=== PATIENT | male | born 1940 | race Caucasian/White ===

== ENCOUNTER 2017-06-01 19:09 | Inpatient (IN) | payer OTHER ==
[~2017-06-01 19:09] MED LIST: DEXTROSE 50% IN WATER 50 ML VIAL(D50) IV PUSH PRN; GLUCAGON 1 MG/ML VIAL OTHER PRN; METF500T PO; cholesteral med PO; hypertension med PO; methylPREDNISolone SOD SUCC 125 MG/2 ML VIAL IV PUSH ONE
[2017-06-01 20:00] VITALS: PULSE 82
[2017-06-01] MEDS ORDERED: METOPROLOL TARTRATE 25 MG TAB PO ONE (20:00)
[2017-06-01 20:04] VITALS: O2SAT 96
[2017-06-01] MEDS: RESP: ALBUTEROL 2.5 MG/IPRATROPIUM 0.5 MG NEB (PRN) NEB (20:04)
[2017-06-01] MEDS: ASPIRIN 325 MG TAB PO SCH (20:30)
[2017-06-01] MEDS: INSULIN NovoLIN REGULAR SUPPLEMENTAL SCALE SQ SCH (20:37)
[2017-06-01] MEDS: METFORMIN HOLD POST IV CONTRAST SCH (20:38)
[2017-06-01 22:13] VITALS: BP 137/77; PULSE 77; RESP 12; TEMP 98.3; O2SAT 94
[2017-06-02] VITALS (8 sets, daily range): BP systolic 132–163; BP diastolic 70–90; PULSE 65–85; RESP 14–20; TEMP 95.6–98.7; O2SAT 95–98
[2017-06-02 06:59] LABS: CALCIUM 8.8 MG/DL (8.5-10.1)
[2017-06-02 07:00] LABS: BICARBONATE 25.6 MEQ/L (21.0-32.0)
[2017-06-02 07:03] LABS: CREATININE 0.94 MG/DL (0.60-1.30)
[2017-06-02] MEDS: INSULIN NovoLIN REGULAR SUPPLEMENTAL SCALE SQ SCH ×4 (08:09→21:00)
[2017-06-02] MEDS: ASPIRIN 325 MG TAB PO SCH (08:09)
[2017-06-02] MEDS ORDERED: [UNRECOGNIZED DRUG - OTHER] PO SCH (09:30)
--- NOTE | 2017-06-02 09:33 | HHI.HP ---
HPI Service [facility] Primary Care Physician [facility] Admission Diagnosis Diagnoses: Chief Complaint: feeling weak Travel History International Travel<30 Days: No Contact w/Intl Traveler <30 Da: No Traveled to Known Affected Are: No History of Present Illness 77-year-old white male being admitted for pneumonia Patient was in his usual state of health until about 5 days ago when he experienced a bout of weakness when he had gotten up to go to the bathroom in the morning and fell backwards scraping his arms. This was transient as the next day he was fine until about 3 days later he felt very weak again and almost collapsed. He denies having any fevers chills nausea vomiting or diarrhea. He denies having any chest pain whatsoever or any shortness of breath at all. In the emergency room, he was noted to have a white count of 18. Chest x-ray was unremarkable, CT chest showed possible bibasilar faint infiltrates. Patient was given Levaquin and then sent over for admission. Review of Systems Except as stated in HPI: all other systems reviewed are Neg Past Family Social History Past Medical History DM, HYL, HTN Allergies: Coded Allergies: No Known Allergies (Unverified , 06/04/17) Family History none per patient Social History Patient reports that he stopped smoking in the 1960s. Physical Exam Vital Signs Vital Signs Date Time Temp Pulse Resp B/P (MAP) Pulse Ox O2 Delivery O2 Flow Rate FiO2 06/02/17 08:00 95.6 68 20 163/79 (107) 95 06/02/17 05:18 98.7 67 16 157/85 (109) 97 06/02/17 01:11 96.7 81 14 132/70 (90) 97 06/01/17 22:13 98.3 77 12 137/77 (97) 94 06/01/17 20:04 96 21 06/01/17 20:00 82 Physical Exam VS: afebrile GENERAL: Lying in bed, no acute distress, awake, alert SKIN: Warm and dry. EYES: No scleral icterus. No injection or drainage. ENT: No nasal bleeding or discharge. Mucous membranes pink and moist. CARDIOVASCULAR: Regular rate and rhythm. no murmurs RESPIRATORY: No accessory muscle use. bibasilar rhonchi and crackles GASTROINTESTINAL: Abdomen soft, non-tender, nondistended. Extremities: No clubbing, cyanosis, or edema. No obvious deformities. MUSCULOSKELETAL: grossly intact ROM with 5/5 strength in upper extremities prox ; 4/5 lower extremities proximally BL; adequate muscle bulk and tone for age and habitus NEUROLOGICAL: Awake and alert. No obvious cranial nerve deficits. No facial droop nor slurred speech noted. PSYCHIATRIC: Appropriate mood and affect; insight and judgment normal. Laboratory Laboratory Tests Test 06/01/17 20:00 06/02/17 06:22 Troponin I 0.10 Blood Urea Nitrogen 19 Creatinine 0.94 Random Glucose 219 Calcium Level 8.8 Sodium Level 132 Potassium Level 3.9 Chloride Level 96 Carbon Dioxide Level 25.6 Anion Gap 10 Estimat Glomerular Filtration Rate 77 Result Diagram: 06/02/17621 Imaging Independently reviewed a chest x-ray and see no acute infiltrates. I independently reviewed the CT scan and see very mild by basilar infiltrates. CTA is negative for pulmonary embolism. Caprini VTE Risk Assessment Caprini VTE Risk Assessment: Mod/High Risk (score >= 2) Caprini Risk Assessment Model Point Value = 1 Point Value = 2 Point Value = 3 Point Value = 5 Age 41-60 Minor surgery BMI > 25 kg/m2 Swollen legs Varicose veins or History of unexplained or recurrent spontaneous Oral contraceptives or hormone replacement Sepsis (< 1 month) Serious lung disease, including pneumonia (< 1 month) Abnormal pulmonary function Acute myocardial infarction Congestive heart failure (< 1 month) History of inflammatory bowel disease Medical patient at bed rest Age 61-74 Arthroscopic surgery Major open surgery (> 45 min) Laparoscopic surgery (> 45 min) Malignancy Confined to bed (> 72 hours) Immobilizing plaster cast Central venous access Age >= 75 History of VTE Family history of VTE Factor V Leiden Prothrombin [id number] Lupus anticoagulant Anticardiolipin antibodies Elevated serum homocysteine Heparin-induced thrombocytopenia Other congenital or acquired thrombophilia Stroke (< 1 month) Elective arthroplasty Hip, pelvis, or leg fracture Acute spinal cord injury (< 1 month) Prophylaxis Regimen Total Risk Factor Score Risk Level Prophylaxis Regimen 0-1 Low Early ambulation 2 Moderate Order ONE of the following: *Sequential Compression Device (SCD) *Heparin 5000 units SQ BID 3-4 Higher Order ONE of the following medications: *Heparin 5000 units SQ TID *Enoxaparin/Lovenox 40 mg SQ daily (WT < 150 kg, CrCl > 30 mL/min) *Enoxaparin/Lovenox 30 mg SQ daily (WT < 150 kg, CrCl > 10-29 mL/min) *Enoxaparin/Lovenox 30 mg SQ BID (WT < 150 kg, CrCl > 30 mL/min) AND/OR *Sequential Compression Device (SCD) 5 or more Highest Order ONE of the following medications: *Heparin 5000 units SQ TID (Preferred with Epidurals) *Enoxaparin/Lovenox 40 mg SQ daily (WT < 150 kg, CrCl > 30 mL/min) *Enoxaparin/Lovenox 30 mg SQ daily (WT < 150 kg, CrCl > 10-29 mL/min) *Enoxaparin/Lovenox 30 mg SQ BID (WT < 150 kg, CrCl > 30 mL/min) AND *Sequential Compression Device (SCD) Assessment and Plan Assessment and Plan Community-acquired pneumonia -Continue treatment with Levaquin; procalcitonin pending mild weakness - PT eval - will get orthostatic vital signs elevated troponin - likely from pulm infx; trend is plateauing. DM - LDSS Lovenox addendum: case d/w cardiology regarding possible LBBB w/ troponin; [place] [facility] [place]. Jayy Pichardo MD Jun 02, 2017 09:33
--- NOTE | 2017-06-02 09:42 | HHI.HP ---
[facility] Admission Diagnosis Diagnoses: Chief Complaint: feeling weak Travel History International Travel<30 Days: No Contact w/Intl Traveler <30 Da: No Traveled to Known Affected Are: No History of Present Illness 77-year-old white male being admitted for pneumonia. Patient was in his usual state of health until about 5 days ago when he experienced a bout of weakness when he had gotten up to go to the bathroom in the morning and fell backwards scraping his arms. This was transient as the next day he was fine until about 3 days later he felt very weak again and almost collapsed. He denies having any fevers chills nausea vomiting or diarrhea. He denies having any chest pain whatsoever or any shortness of breath at all. In the emergency room, he was noted to have a white count of 18. Chest x-ray was unremarkable, CTA chest showed possible bibasilar faint infiltrates. Patient was given Levaquin and then sent over for admission. Patient reports that he stopped smoking in the 1960s. Denies any significant family hx. Reports he takes some BP med and baby aspirin. Denies any CAD. Review of Systems Except as stated in HPI: all other systems reviewed are Neg Past Family Social History Allergies: Coded Allergies: No Known Allergies (Unverified , 06/01/17) Social History Patient reports that he stopped smoking in the . Physical Exam Vital Signs Vital Signs Date Time Temp Pulse Resp B/P (MAP) Pulse Ox O2 Delivery O2 Flow Rate FiO2 06/02/17 08:00 95.6 68 20 163/79 (107) 95 06/02/17 05:18 98.7 67 16 157/85 (109) 97 06/02/17 01:11 96.7 81 14 132/70 (90) 97 06/01/17 22:13 98.3 77 12 137/77 (97) 94 06/01/17 20:04 96 21 06/01/17 20:00 82 Physical Exam VS: afebrile GENERAL: Lying in bed, no acute distress, awake, alert SKIN: Warm and dry. EYES: No scleral icterus. No injection or drainage. ENT: No nasal bleeding or discharge. Mucous membranes pink and moist. CARDIOVASCULAR: Regular rate and rhythm. no murmurs RESPIRATORY: No accessory muscle use. bibasilar rhonchi and crackles GASTROINTESTINAL: Abdomen soft, non-tender, nondistended. Extremities: No clubbing, cyanosis, or edema. No obvious deformities. MUSCULOSKELETAL: grossly intact ROM with 5/5 strength in upper extremities prox ; 4/5 lower extremities proximally BL; adequate muscle bulk and tone for age and habitus NEUROLOGICAL: Awake and alert. No obvious cranial nerve deficits. No facial droop nor slurred speech noted. PSYCHIATRIC: Appropriate mood and affect; insight and judgment normal. Laboratory Laboratory Tests Test 06/01/17 20:00 06/02/17 06:22 Troponin I 0.10 Blood Urea Nitrogen 19 Creatinine 0.94 Random Glucose 219 Calcium Level 8.8 Sodium Level 132 Potassium Level 3.9 Chloride Level 96 Carbon Dioxide Level 25.6 Anion Gap 10 Estimat Glomerular Filtration Rate 77 Result Diagram: 06/02/17621 Imaging Independently reviewed a chest x-ray and see no acute infiltrates. I independently reviewed the CT scan and see very mild by basilar infiltrates. CTA is negative for pulmonary embolism. Caprini VTE Risk Assessment Caprini VTE Risk Assessment: Mod/High Risk (score >= 2) Caprini Risk Assessment Model Point Value = 1 Point Value = 2 Point Value = 3 Point Value = 5 Age 41-60 Minor surgery BMI > 25 kg/m2 Swollen legs Varicose veins or History of unexplained or recurrent spontaneous Oral contraceptives or hormone replacement Sepsis (< 1 month) Serious lung disease, including pneumonia (< 1 month) Abnormal pulmonary function Acute myocardial infarction Congestive heart failure (< 1 month) History of inflammatory bowel disease Medical patient at bed rest Age 61-74 Arthroscopic surgery Major open surgery (> 45 min) Laparoscopic surgery (> 45 min) Malignancy Confined to bed (> 72 hours) Immobilizing plaster cast Central venous access Age >= 75 History of VTE Family history of VTE Factor V Leiden Prothrombin [id number] Lupus anticoagulant Anticardiolipin antibodies Elevated serum homocysteine Heparin-induced thrombocytopenia Other congenital or acquired thrombophilia Stroke (< 1 month) Elective arthroplasty Hip, pelvis, or leg fracture Acute spinal cord injury (< 1 month) Prophylaxis Regimen Total Risk Factor Score Risk Level Prophylaxis Regimen 0-1 Low Early ambulation 2 Moderate Order ONE of the following: *Sequential Compression Device (SCD) *Heparin 5000 units SQ BID 3-4 Higher Order ONE of the following medications: *Heparin 5000 units SQ TID *Enoxaparin/Lovenox 40 mg SQ daily (WT < 150 kg, CrCl > 30 mL/min) *Enoxaparin/Lovenox 30 mg SQ daily (WT < 150 kg, CrCl > 10-29 mL/min) *Enoxaparin/Lovenox 30 mg SQ BID (WT < 150 kg, CrCl > 30 mL/min) AND/OR *Sequential Compression Device (SCD) 5 or more Highest Order ONE of the following medications: *Heparin 5000 units SQ TID (Preferred with Epidurals) *Enoxaparin/Lovenox 40 mg SQ daily (WT < 150 kg, CrCl > 30 mL/min) *Enoxaparin/Lovenox 30 mg SQ daily (WT < 150 kg, CrCl > 10-29 mL/min) *Enoxaparin/Lovenox 30 mg SQ BID (WT < 150 kg, CrCl > 30 mL/min) AND *Sequential Compression Device (SCD) Assessment and Plan Assessment and Plan Community-acquired pneumonia -Continue treatment with Levaquin; procalcitonin pending, if neg can stop abx Elevated trops w/ mild weakness - d/w Dr. Vargas w/ possible LBBB, transferring to [facility] today for possible LHC in AM - continue aspirin 325, starting Lipitor and Lopressor BID, on tele, trop plateauing DM - LDSS Heparin for now Physician Certification 2 Midnight Certification Type: Admission for Inpatient Services Order for Inpatient Services The services are ordered in accordance with Medicare regulations or non- Medicare payer requirements, as applicable. In the case of services not specified as inpatient-only, they are appropriately provided as inpatient services in accordance with the 2-midnight benchmark. Estimated LOS (days): 2 2 days is the estimated time the patient will need to remain in the hospital, assuming treatment plan goals are met and no additional complications. Post-Hospital Plan: Not yet determined Jayy Pichardo MD Jun 02, 2017 09:42
[2017-06-02] MEDS ORDERED: ATORVASTATIN 40 MG TAB PO ONE (09:45)
[2017-06-02 10:12] LABS: HEMOGLOBIN 11.1 GM/DL (13.0-17.0); MEAN CELL VOLUME 90.7 FL (80.0-100.0); MEAN CORPUSCULAR HEMOGLOBIN 30.4 PG (27.0-34.0); MEAN CORPUSCULAR HGB CONC 33.5 % (32.0-36.0); MEAN PLATELET VOLUME 8.4 FL (7.0-11.0); PLATELET COUNT 110 TH/MM3 (150-450); RED BLOOD COUNT 3.64 MIL/MM3 (4.50-5.90); RED CELL DISTRIBUTION WIDTH 14.7 % (11.6-17.2); WHITE BLOOD COUNT 30.9 TH/MM3 (4.0-11.0)
[2017-06-02] MEDS: METOPROLOL TARTRATE 25 MG TAB PO SCH ×2 (10:45→20:52)
[2017-06-02] MEDS: HEPARIN SODIUM - SQ 10,000 UNITS/ML VIAL SQ SCH ×3 (10:46→20:52)
[2017-06-02 11:09] LABS: LYMPHOCYTES 77 % (9-44); MONOCYTES 2 % (0-8); NEUTROPHIL # MANUAL DIFF 6.5 TH/MM3 (1.8-7.7); POLYS (SEG NEUTROPHILS) 21 % (16-70)
[2017-06-02] MEDS ORDERED: LEVOFLOXACIN 750 MG PREMIX INJ 150 ML IV SCH (14:00)
[2017-06-02] MEDS: METFORMIN HOLD POST IV CONTRAST SCH (19:50)
[2017-06-02] MEDS ORDERED: CHOLESTERAL MED PO SCH (21:00)
[2017-06-03] VITALS: BP_SYST 133; BP_SYST 150; BP_DIAS 75; BP_DIAS 77; PULSE 69; PULSE 85; RESP 20; TEMP 97.7; TEMP 97.9; O2SAT 96; O2SAT 97
[2017-06-03 04:00] VITALS: BP 155/79; PULSE 68; RESP 20; TEMP 98.2; O2SAT 98
[2017-06-03] MEDS: HEPARIN SODIUM - SQ 10,000 UNITS/ML VIAL SQ SCH (05:33)
--- NOTE | 2017-06-03 06:13 | MB ---
cc: ANUSHKA CELIS M.D. DATE OF CONSULTATION 06/02/2017 HISTORY Raphael is a very pleasant 77-year-old gentleman who is from [facility]. His Tajik is somewhat limited and he cannot quite tell me why he is here but according to the records in the ER he has an elevated troponin and a left bundle-branch block and dense calcification on CT of chest. He complains of weakness and near-syncope prior to admission. Denies chest pain or shortness of breath, fevers, chills, cough, GI or bleeding. PAST MEDICAL HISTORY Per his present illness. ALLERGIES None. MEDICATIONS 1. Atorvastatin 40 at h.s. 2. Levofloxacin. 3. Metoprolol 12.5 q.12 hours. 4. Heparin 5000 q.8 hours subcu. 5. Aspirin 225. PHYSICAL EXAMINATION VITAL SIGNS: Blood pressure 153/76, pulse 77, respiratory rate 20, temperature 97.4. GENERAL: He is alert and oriented x 3, in no acute distress. NECK: Supple. No JVD, no bruit. CARDIOVASCULAR: S1, S2. No murmurs, rubs, or gallops. LUNGS: Clear to auscultation bilaterally. ABDOMEN: Soft, nontender, nondistended with positive bowel sounds. EXTREMITIES: No lower extremity edema. LABORATORY DATA White count 30.9, hemoglobin 11.1, hematocrit 33.0, platelet count 110. Troponin is 0.10 followed by 0.6. Sodium 133, potassium 3.1, chloride 96, BUN 19, creatinine 0.94. EKG Left bundle branch block, normal sinus rhythm at [address] THE CHEST I cannot obtain imaging from the computer at this point in time. However, I previously read his CT results which did show dense coronary calcification. FINAL DIAGNOSES 1. Non-STEMI coronary artery disease. 2. Elevated white count. 3. Anemia. 4. Thrombocytopenia. 5. Hyponatremia. 6. Hyperglycemia. 7. Weakness and fatigue. DISCUSSION At this point in time, due to the patient's presentation, agree with heart catheterization if medically necessary. Agree with aspirin, lovastatin, metoprolol 12.5 q.12 hours. Further recommendations based on the patient's coronary anatomy. MD SYDNEE Gama/VERÓNICA /7:31 PM /6:01 AM
[2017-06-03 06:36] LABS: HEMATOCRIT 32.7 % (39.0-51.0); HEMOGLOBIN 10.8 GM/DL (13.0-17.0); MEAN CELL VOLUME 90.4 FL (80.0-100.0); MEAN CORPUSCULAR HEMOGLOBIN 29.7 PG (27.0-34.0); MEAN CORPUSCULAR HGB CONC 32.8 % (32.0-36.0); MEAN PLATELET VOLUME 8.9 FL (7.0-11.0); PLATELET COUNT 132 TH/MM3 (150-450); RED BLOOD COUNT 3.62 MIL/MM3 (4.50-5.90); RED CELL DISTRIBUTION WIDTH 14.4 % (11.6-17.2); WHITE BLOOD COUNT 39.8 TH/MM3 (4.0-11.0)
[2017-06-03 07:27] LABS: ATYPICAL LYMPHOCYTES 14 % (0-0); LYMPHOCYTES 57 % (9-44); MONOCYTES 5 % (0-8); NEUTROPHIL # MANUAL DIFF 9.6 TH/MM3 (1.8-7.7); POLYS (SEG NEUTROPHILS) 24 % (16-70)
[2017-06-03 08:00] VITALS: BP 145/83; PULSE 73; RESP 14; TEMP 96.3; O2SAT 98
[2017-06-03] MEDS: ASPIRIN 325 MG TAB PO SCH (08:26)
[2017-06-03] MEDS: METOPROLOL TARTRATE 25 MG TAB PO SCH (08:28)
[2017-06-03] MEDS: INSULIN NovoLIN REGULAR SUPPLEMENTAL SCALE SQ SCH ×2 (08:37→13:23)
[2017-06-03] MEDS: RESP: ALBUTEROL 2.5 MG/IPRATROPIUM 0.5 MG NEB (PRN) NEB (09:56)
[2017-06-03 09:57] VITALS: O2SAT 97
--- NOTE | 2017-06-03 11:41 | HHI.PR ---
Subjective Remarks patient seen and evaluated in follow-up for symptoms worrisome for anginal equivalent versus pneumonia. Tolerating current antibiotics without difficulty. Patient has been seen by cardiology and has been recommended for a cardiac catheterization. Patient has refused this initiative and would like to go home. He is advised on the risks benefits and alternatives for further evaluation by cardiac catheterization. He has expressed understanding and would still like to discharged himself AGAINST MEDICAL ADVICE. Objective Vitals Vital Signs Date Time Temp Pulse Resp B/P (MAP) Pulse Ox O2 Delivery O2 Flow Rate FiO2 06/03/17 09:57 97 21 06/03/17 08:00 96.3 73 14 145/83 (103) 98 06/03/17 04:00 98.2 68 20 155/79 (104) 98 06/03/17 00:00 97.7 69 20 150/77 (101) 96 06/02/17 20:05 98 21 06/02/17 20:00 97.9 85 20 133/75 (94) 97 06/02/17 20:00 79 06/02/17 16:00 97.4 77 20 153/76 (101) 98 06/02/17 12:00 95.6 73 20 151/74 (99) 95 I/O 06/02/17 06/02/17 06/02/17 06/03/17 06/03/17 06/03/17 07:00 15:00 23:00 07:00 15:00 23:00 Intake Total 480 ml 70 ml Output Total 900 ml 400 ml 325 ml Balance -900 ml 480 ml -400 ml -255 ml Intake Oral 480 ml 60 ml IV Total 10 ml Output Urine Total 900 ml 400 ml 325 ml # Voids 3 1 # Bowel Movements 2 0 Result Diagram: 06/03/17 0505 06/02/17 0622 Objective Remarks GENERAL: This is a well-nourished, well-developed patient, in no apparent distress. CARDIOVASCULAR: Regular rate and rhythm without murmurs, gallops, or rubs. RESPIRATORY: Clear to auscultation. Breath sounds equal bilaterally. No wheezes , rales, or rhonchi. GASTROINTESTINAL: Abdomen soft, non-tender, nondistended. Normal active bowel sounds MUSCULOSKELETAL: Extremities without clubbing, cyanosis, or edema. NEURO: Alert & Oriented x4 to person, place, time, situation. Moves all ext x4 A/P Problem List: (1) Chest pain, atypical ICD Code: R07.89 - Other chest pain Plan: Patient would do well to follow-up with recommendations for cardiac catheterization. At this point however he has refused. We'll continue with treatment for pneumonia patient will leave AGAINST MEDICAL ADVICE Discharge Planning AMA Activity unrestricted Diet regular Yasmin Prince MD Jun 03, 2017 11:41
[2017-06-03 12:00] VITALS: BP 149/85; PULSE 65; RESP 14; TEMP 96; O2SAT 96
[2017-06-03] MEDS ORDERED: LEVA500T33 PO (12:05)
--- NOTE | 2017-06-03 12:05 | HHI.DCPOC ---
Discharge Care Plan Diagnosis: (1) Pneumonia (2) Chest pain, atypical Goals to Promote Your Health * To prevent worsening of your condition and complications * To maintain your health at the optimal level Directions to Meet Your Goals Take your medications as prescribed Follow your dietary instruction Follow activity as directed Keep your appointments as scheduled Take your immunizations and boosters as scheduled If your symptoms worsen call your PCP, if no PCP go to Urgent Care Center or Emergency Room Smoking is Dangerous to Your Health. Avoid second hand smoke Call the 24-hour hour crisis hotline for domestic abuse at Yasmin Prince MD Jun 03, 2017 12:05
[2017-06-03 12:17] LABS: CREATININE 1.1 MG/DL (0.60-1.30)
[2017-06-03 12:21] LABS: TROPONIN I 0.05 NG/ML (0.02-0.05)
--- NOTE | 2017-06-03 12:30 | PD.CARD.PN ---
Subjective Subjective Remarks alert in nad Objective Medications Current Medications Medications (Trade) Dose Ordered Sig/Mariana Route Start Time Stop Time Status Last Admin Levofloxacin/ Dextrose 150 ml @ 100 mls/hr Q24H IV 06/02/17 14:00 06/02/17 14:13 (Aspirin) 325 mg DAILY PO 06/01/17 20:00 06/03/17 08:26 (Duoneb Neb) 1 ampule Q6HR WHILE AWAKE NEB PRN NEB 06/01/17 18:15 06/03/17 09:56 (D50w (Vial) Inj) 50 ml UNSCH PRN IV PUSH 06/01/17 18:15 (Glucagon Inj) 1 mg UNSCH PRN OTHER 06/01/17 18:15 (NovoLIN R SUPPLEMENTAL SCALE) 1 ACHS SLIDING SCALE SQ 06/01/17 21:00 06/03/17 08:37 Miscellaneous Information HOLD METFORMIN FOR... Q24H .XX 06/01/17 19:45 06/03/17 19:44 06/01/17 20:38 (Lipitor) 40 mg HS PO 06/03/17 21:00 (Lopressor) 12.5 mg Q12HR PO 06/02/17 10:00 06/03/17 08:28 (Heparin Inj) 5,000 units Q8HR SQ 06/02/17 09:55 06/03/17 05:33 Vital Signs / I&O Vital Signs Date Time Temp Pulse Resp B/P (MAP) Pulse Ox O2 Delivery O2 Flow Rate FiO2 06/03/17 09:57 97 21 06/03/17 08:00 96.3 73 14 145/83 (103) 98 06/03/17 04:00 98.2 68 20 155/79 (104) 98 06/03/17 00:00 97.7 69 20 150/77 (101) 96 06/02/17 20:05 98 21 06/02/17 20:00 97.9 85 20 133/75 (94) 97 06/02/17 20:00 79 06/02/17 16:00 97.4 77 20 153/76 (101) 98 I/O 06/02/17 06/02/17 06/02/17 06/03/17 06/03/17 06/03/17 07:00 15:00 23:00 07:00 15:00 23:00 Intake Total 480 ml 70 ml Output Total 900 ml 400 ml 325 ml Balance -900 ml 480 ml -400 ml -255 ml Intake Oral 480 ml 60 ml IV Total 10 ml Output Urine Total 900 ml 400 ml 325 ml # Voids 3 1 # Bowel Movements 2 0 Physical Exam GENERAL: SKIN: Warm and dry. HEAD: Normocephalic. EYES: No scleral icterus. No injection or drainage. NECK: Supple, trachea midline. No JVD or lymphadenopathy. CARDIOVASCULAR: Regular rate and rhythm without murmurs, gallops, or rubs. RESPIRATORY: Breath sounds equal bilaterally. No accessory muscle use. GASTROINTESTINAL: Abdomen soft, non-tender, nondistended. MUSCULOSKELETAL: No cyanosis, or edema. BACK: Nontender without obvious deformity. No CVA tenderness. Laboratory Laboratory Tests Test 06/02/17 18:30 06/03/17 05:05 06/03/17 11:40 Troponin I 0.06 NG/ML 0.05 NG/ML White Blood Count 39.8 TH/MM3 Red Blood Count 3.62 MIL/MM3 Hemoglobin 10.8 GM/DL Hematocrit 32.7 % Mean Corpuscular Volume 90.4 FL Mean Corpuscular Hemoglobin 29.7 PG Mean Corpuscular Hemoglobin Concent 32.8 % Red Cell Distribution Width 14.4 % Platelet Count 132 TH/MM3 Mean Platelet Volume 8.9 FL CBC Comment AUTO DIFF Differential Total Cells Counted 100 Neutrophils % (Manual) 24 % Lymphocytes % 57 % Monocytes % 5 % Neutrophils # (Manual) 9.6 TH/MM3 Differential Comment FINAL DIFF MANUAL Atypical Lymphocytes 14 % Platelet Estimate LOW Platelet Morphology Comment NORMAL Red Cell Morphology Comment NORMAL Creatinine 1.10 MG/DL Estimat Glomerular Filtration Rate 65 ML/MIN Assessment and Plan Problem List: (1) NSTEMI (non-ST elevated myocardial infarction) ICD Codes: I21.4 - Non-ST elevation (NSTEMI) myocardial infarction (2) CAD (coronary artery disease) ICD Codes: I25.10 - Atherosclerotic heart disease of [place] coronary artery without angina pectoris (3) LBBB (left bundle branch block) ICD Codes: I44.7 - Left bundle-branch block, unspecified Assessment and Plan 1.) CAD - lhc is medically necessary due to nstemi; i explained to patient he may have a life threatening coronary artery stenosis; he understands but refuses cath and states he will leave against meeical advise Ivan Vargas MD Jun 03, 2017 12:30
[2017-06-03] MEDS ORDERED: ATORVASTATIN 40 MG TAB PO SCH (21:00)
== END 2017-06-03 14:40 | disposition left against medical advice (07) | DRG 280 ==
LOC: PHEDDLT 19:09 → OBSVTOIN 19:10 → PH3A 19:10
PROVIDERS: ADMIT Hospitalist; ATTEND Hospitalist
DX: I21.4 Non-ST elevation (NSTEMI) myocardial infarction (principal); J18.9 Pneumonia, unspecified organism; E11.65 Type 2 diabetes mellitus with hyperglycemia; D69.6 Thrombocytopenia, unspecified; E87.1 Hypo-osmolality and hyponatremia; D64.9 Anemia, unspecified; I44.7 Left bundle-branch block, unspecified; I10 Essential (primary) hypertension; Z87.891 Personal history of nicotine dependence; I25.10 Atherosclerotic heart disease of native coronary artery without angina pectoris
CPT/HCPCS: 71046; 71275; 80048; 80053; 81001; 82565; 82948; 83605; 83880; 84145; 84484; 85007; 85027; 85379; 85610; 85730; 87449; 87804; 93005; 94640; 94664; 96374; J1644; J1956; J2930; Q9967

== ENCOUNTER 2017-06-04 14:50 | Inpatient (IN) | payer OTHER ==
[2017-06-04] VITALS (7 sets, daily range): BP systolic 124–142; BP diastolic 67–79; PULSE 70–99; RESP 16–19; TEMP 97.4–97.9; O2SAT 97–98
[~2017-06-04] VITALS: Ht 172.7 cm; Wt 81.7 kg
[~2017-06-04 14:50] MED LIST changes: -DEXTROSE 50% IN WATER 50 ML VIAL(D50) IV PUSH PRN; -GLUCAGON 1 MG/ML VIAL OTHER PRN; +LEVA500T33 PO; -methylPREDNISolone SOD SUCC 125 MG/2 ML VIAL IV PUSH ONE
--- NOTE | 2017-06-04 16:09 | PD ---
HPI Chief Complaint: Respiratory Symptoms Time Seen by Provider: 16:07 Travel History International Travel<30 days: No Contact w/Intl Traveler<30days: No Traveled to known affect area: No History of Present Illness HPI 77-year-old male came to the emergency room with history of cough that's been going on for past 3 days. Patient was admitted in this hospital and left AMA yesterday. She he says he had to go home because his needs a lot of assistance. He was told that he had pneumonia and something with the heart and that he needed to be transferred to the main hospital. He says he is willing to stay today and "finish this off". Vital signs are stable. He does not appear to be in any significant distress. ON LICENSE OF [facility] Past Medical History Narrative Medical List of his past medical, surgical, social and family history is reviewed from the nursing note. Hx Anticoagulant Therapy: Yes (asa 81mg) Arthritis: Yes (knees) Cancer: No Cardiovascular Problems: Yes (htn on meds,) High Cholesterol: Yes Diabetes: Yes (type 2) Diminished Hearing: Yes (wearing hearing aides) Genitourinary: No Hypertension: Yes Immune Disorder: No Neurologic: No Psychiatric: No Reproductive: No Respiratory: No Ulcer: Yes Social History Alcohol Use: Yes (daily wine with club soda) Tobacco Use: No (former) Substance Use: No Allergies-Medications (Allergen,Severity, Reaction): Coded Allergies: No Known Allergies (Unverified , 06/04/17) Comments No known drug allergies. Reported Meds & Prescriptions Reported Meds & Active Scripts Active Levaquin (Levofloxacin) 500 Mg Tablet 500 Mg PO DAILY Reported Metformin (Metformin HCl) 500 Mg Tab 500 Mg PO BIDPC [hypertension med] 1 Tab PO DAILY [cholesteral med] 20 Mg PO HS Narrative Medication List of his home medications reviewed from the nursing note. Review of Systems Except as stated in HPI: all other systems reviewed are Neg Respiratory: Positive: Cough Physical Exam Narrative GENERAL: Awake, alert, no obvious distress SKIN: Focused skin assessment warm/dry. HEAD: Atraumatic. Normocephalic. EYES: Pupils equal and round. No scleral icterus. No injection or drainage. ENT: No nasal bleeding or discharge. Mucous membranes pink and moist. NECK: Trachea midline. No JVD. CARDIOVASCULAR: Regular rate and rhythm. No murmur appreciated. RESPIRATORY: No accessory muscle use. Coarse crackles in the left lung base GASTROINTESTINAL: Abdomen soft, non-tender, nondistended. Hepatic and splenic margins not palpable. MUSCULOSKELETAL: No obvious deformities. No clubbing. No cyanosis. No edema. NEUROLOGICAL: Awake and alert. No obvious cranial nerve deficits. Motor grossly within normal limits. Normal speech. PSYCHIATRIC: Appropriate mood and affect; insight and judgment normal. Data Data Last Documented VS Vital Signs Date Time Temp Pulse Resp B/P (MAP) Pulse Ox O2 Delivery O2 Flow Rate FiO2 06/04/17 16:47 98 Room Air 06/04/17 15:20 97.9 99 16 138/79 (98) Orders Orders Complete Blood Count With Diff (06/04/17 16:23) Basic Metabolic Panel (Bmp) (06/04/17 16:23) B-Type Natriuretic Peptide (06/04/17 16:23) Prothrombin Time / Inr (Pt) (06/04/17 16:23) Troponin I (06/04/17 16:23) Iv Access Insert/Monitor (06/04/17 16:23) Electrocardiogram (06/04/17 16:23) Ecg Monitoring (06/04/17 16:23) Oximetry (06/04/17 16:23) Oxygen Administration (06/04/17 16:23) Chest, Pa & Lat (06/04/17 16:23) Sodium Chloride 0.9% Flush (Ns Flush) (06/04/17 16:30) Levofloxacin 500 Mg Premix Inj (Levaquin (06/04/17 17:30) Blood Culture (06/04/17 17:18) Admit Order (Ed Use Only) (06/04/17 18:32) Labs Laboratory Tests Test 06/04/17 16:45 White Blood Count 60.8 TH/MM3 Red Blood Count 3.65 MIL/MM3 Hemoglobin 10.8 GM/DL Hematocrit 32.7 % Mean Corpuscular Volume 89.5 FL Mean Corpuscular Hemoglobin 29.5 PG Mean Corpuscular Hemoglobin Concent 32.9 % Red Cell Distribution Width 14.4 % Platelet Count 201 TH/MM3 Mean Platelet Volume 7.7 FL CBC Comment AUTO DIFF Differential Total Cells Counted 100 Neutrophils % (Manual) 7 % Band Neutrophils % 1 % Lymphocytes % 90 % Monocytes % 2 % Neutrophils # (Manual) 4.9 TH/MM3 Differential Comment FINAL DIFF MANUAL Smudge Cells PRESENT Platelet Estimate NORMAL Platelet Morphology Comment NORMAL Red Cell Morphology Comment NORMAL Prothrombin Time 11.7 SEC Prothromb Time International Ratio 1.2 RATIO Blood Urea Nitrogen 19 MG/DL Creatinine 1.10 MG/DL Random Glucose 114 MG/DL Calcium Level 9.0 MG/DL Sodium Level 133 MEQ/L Potassium Level 3.5 MEQ/L Chloride Level 99 MEQ/L Carbon Dioxide Level 25.1 MEQ/L Anion Gap 9 MEQ/L Estimat Glomerular Filtration Rate 65 ML/MIN Troponin I 0.04 NG/ML B-Type Natriuretic Peptide 105 PG/ML MDM Medical Decision Making Medical Screen Exam Complete: Yes Emergency Medical Condition: Yes Medical Record Reviewed: Yes Interpretation(s) Twelve-lead EKG was reviewed by me. Left bundle branch block, left axis deviation, sinus rhythm. Heart rate of 83 bpm. Differential Diagnosis Pneumonia, ACS Narrative Course 4:54 PM upon trending his labs back from the admission time was noticed that patient has significant leukocytosis when he left AMA. Also his troponins were trending high. Awaiting for the blood test results to be done and resulted. 5:19 PM blood test results are back. WBC is almost double than what it was yesterday. Chest x-ray does not show any significant infiltrate. Awaiting for the official result. Troponin is within acceptable limits. I've ordered a dose of Levaquin. Awaiting for the hospitalist call back. Given significant leukocytosis he should be seen by marine electronics repairer in my opinion since that is out of proportion to his clinical presentation. Malignancy should be ruled out. 6:14 PM still waiting for the hospitalist to call back. Procedures EKG Prior to Arrival: No Diagnosis Primary Impression: Pneumonia Qualified Codes: J18.1 - Lobar pneumonia, unspecified organism Additional Impression: Leukocytosis Qualified Codes: D72.829 - Elevated white blood cell count, unspecified Admitting Information Admitting Physician Requests: it Ki Capellan MD Jun 04, 2017 16:09
[2017-06-04] MEDS ORDERED: SODIUM CHLORIDE 0.9% FLUSH 10 ML FLUSH IVF PRN (16:30)
[2017-06-04 16:54] LABS: HEMATOCRIT 32.7 % (39.0-51.0); HEMOGLOBIN 10.8 GM/DL (13.0-17.0); MEAN CELL VOLUME 89.5 FL (80.0-100.0); MEAN CORPUSCULAR HEMOGLOBIN 29.5 PG (27.0-34.0); MEAN CORPUSCULAR HGB CONC 32.9 % (32.0-36.0); MEAN PLATELET VOLUME 7.7 FL (7.0-11.0); PLATELET COUNT 201 TH/MM3 (150-450); RED BLOOD COUNT 3.65 MIL/MM3 (4.50-5.90); RED CELL DISTRIBUTION WIDTH 14.4 % (11.6-17.2); WHITE BLOOD COUNT 60.8 TH/MM3 (4.0-11.0)
[2017-06-04 17:16] LABS: BICARBONATE 25.1 MEQ/L (21.0-32.0); CREATININE 1.1 MG/DL (0.60-1.30); TROPONIN I 0.04 NG/ML (0.02-0.05)
[2017-06-04 17:22] LABS: INTERNATIONAL NORMALIZED RATIO 1.2 RATIO; PROTHROMBIN TIME - PATIENT 11.7 SEC (9.8-11.6)
[2017-06-04] MEDS ORDERED: LEVOFLOXACIN 500 MG PREMIX INJ 100 ML IV ONE (17:30)
--- NOTE | 2017-06-04 17:45 | RADRPT ---
EXAM DATE/TIME: 06/04/2017 16:55 [facility] COMPARISON: CHEST PA & LAT, June 01, 2017, 10:32. INDICATIONS : Lung infection. MEDICAL HISTORY : Diabetes mellitus type 2. SURGICAL HISTORY : None. ENCOUNTER: Initial ACUITY: 3 days PAIN SCORE: 0/10 LOCATION: Bilateral chest FINDINGS: Frontal and lateral views of the chest demonstrate a normal-sized cardiac silhouette. There is stable slight blunting of the costophrenic sulci bilaterally. No airspace consolidation or pneumothorax is identified. The bones and soft tissues demonstrate no acute finding. CONCLUSION: Stable very small bilateral pleural effusions. Otherwise, no acute finding is identified. Daniel Zurita MD on June 04, 2017 at 17:42 Board Certified Radiologist. This report was verified electronically.
[2017-06-04 17:57] LABS: BANDS 1 % (0-6); LYMPHOCYTES 90 % (9-44); MONOCYTES 2 % (0-8); NEUTROPHIL # MANUAL DIFF 4.9 TH/MM3 (1.8-7.7); POLYS (SEG NEUTROPHILS) 7 % (16-70); SMUDGE CELLS PRESENT PRESENT
[2017-06-04] MEDS ORDERED: IOHEXOL 350 MG/ML 100 ML BTL (for Cath Lab) OTHER ONE (18:35)
[2017-06-04] MEDS ORDERED: DEXTROSE 50% IN WATER 50 ML VIAL(D50) IV PUSH PRN (19:15)
[2017-06-04] MEDS ORDERED: LACTULOSE SYRUP 20 GM/30 ML CUP PO PRN (19:15)
[2017-06-04] MEDS ORDERED: SODIUM CHLORIDE 0.9% FLUSH 10 ML FLUSH IV FLUSH PRN (19:15)
[2017-06-04] MEDS ORDERED: SENNOSIDES 8.6 MG TAB PO PRN (19:15)
[2017-06-04] MEDS ORDERED: MAGNESIUM HYDROXIDE SUSP 30 ML CUP PO PRN (19:15)
[2017-06-04] MEDS ORDERED: NALOXONE HCL 0.4 MG/ML AMP IV PUSH PRN (19:15)
[2017-06-04] MEDS ORDERED: BISACODYL 10 MG SUPP RECTAL PRN (19:15)
[2017-06-04] MEDS ORDERED: GLUCAGON 1 MG/ML VIAL OTHER PRN (19:15)
[2017-06-04] MEDS: INSULIN ASPART SUPPLEMENTAL SCALE SQ SCH (21:12)
[2017-06-04] MEDS: DOCUSATE SODIUM 50 MG/SENNA 8.6 MG TAB PO SCH (21:48)
[2017-06-04] MEDS: SODIUM CHLORIDE 0.9% FLUSH 10 ML FLUSH IV FLUSH SCH (21:49)
[2017-06-04] MEDS ORDERED: ALUMINUM/MAGNESIUM/SIMETH 30 ML CUP PO ONE (23:00)
[2017-06-04] MEDS ORDERED: PANTOPRAZOLE SODIUM 40 MG VIAL IV PUSH ONE (23:00)
--- NOTE | 2017-06-04 23:54 | HHI.HP ---
[facility] Admission Diagnosis cough, leukocytosis, pneumonia Diagnoses: Chief Complaint: cough Travel History International Travel<30 Days: No Contact w/Intl Traveler <30 Da: No Traveled to Known Affected Are: No History of Present Illness 77 y/o male with a history of HTN, DM, and HLD presented to the ED with complaints of a cough and fatigue. He states last Tuesday is when his symptoms started, he was seen in [place] on 06/01 and was treated with Levaquin but had to sign out AMA to go home and care for his . He came back today because he knew he needed antibiotics. He denies any fevers or chills. He states he has a productive cough with white sputum. Also on 06/01 he was found to have a troponin of .09, at this time he complained of chest pain, currently no chest pain. He was evaluated by cardiology and offered a cath but declined because he had to leave. Review of Systems Except as stated in HPI: all other systems reviewed are Neg Past Family Social History Past Medical History HTN HLD DM Past Surgical History Patient denies any surgery Reported Medications Reported Meds & Active Scripts Active Levaquin (Levofloxacin) 500 Mg Tablet 500 Mg PO DAILY Reported Metformin (Metformin HCl) 500 Mg Tab 500 Mg PO BIDPC [hypertension med] 1 Tab PO DAILY [cholesteral med] 20 Mg PO HS Allergies: Coded Allergies: No Known Allergies (Unverified , 06/04/17) Active Ordered Medications Current Medications Medications (Trade) Dose Ordered Sig/Mariana Route Start Time Stop Time Status Last Admin (NS Flush) 2 ml UNSCH PRN IV FLUSH 06/04/17 19:15 (NS Flush) 2 ml BID IV FLUSH 06/04/17 21:00 06/04/17 21:49 (Narcan Inj) 0.4 mg UNSCH PRN IV PUSH 06/04/17 19:15 (Nicole-Colace) 1 tab BID PO 06/04/17 21:00 06/04/17 21:48 (Milk Of Magnesia Liq) 30 ml Q12H PRN PO 06/04/17 19:15 (Senokot) 17.2 mg Q12H PRN PO 06/04/17 19:15 (Dulcolax Supp) 10 mg DAILY PRN RECTAL 06/04/17 19:15 (Lactulose Liq) 30 ml DAILY PRN PO 06/04/17 19:15 (Levaquin) 750 mg Q24H PO 06/05/17 17:00 (D50w (Vial) Inj) 50 ml UNSCH PRN IV PUSH 06/04/17 19:15 (Glucagon Inj) 1 mg UNSCH PRN OTHER 06/04/17 19:15 (NovoLOG SUPPLEMENTAL SCALE) 1 ACHS SLIDING SCALE SQ 06/04/17 21:00 06/04/17 21:12 (Duoneb Neb) 1 ampule Q2HR NEB PRN NEB 06/05/17 01:00 (Duoneb Neb) 1 ampule Q6HR NEB NEB 06/05/17 04:00 UNV Family History Patient denies any family history Social History Tobacco use: Quit 1960s Alcohol use: Denies Illicit drug use: Denies Physical Exam Vital Signs Vital Signs Date Time Temp Pulse Resp B/P (MAP) Pulse Ox O2 Delivery O2 Flow Rate FiO2 06/04/17 21:28 06/04/17 20:13 98 21 06/04/17 19:15 98 Room Air 06/04/17 19:15 78 16 124/71 (88) 98 Room Air 06/04/17 16:47 98 Room Air 06/04/17 16:47 98 Room Air 06/04/17 15:20 97.9 99 16 138/79 (98) 97 Physical Exam GENERAL: This is a well-nourished, well-developed patient, in no apparent distress. SKIN: No rashes, ecchymoses or lesions. Cool and dry. HEAD: Atraumatic. Normocephalic. EYES: Pupils equal round and reactive. ENT: Nose without bleeding, purulent drainage or septal hematoma. Airway patent. NECK: Trachea midline. No JVD or lymphadenopathy. CARDIOVASCULAR: Regular rate and rhythm without murmurs, gallops, or rubs. RESPIRATORY: Diminished bases with scattered rhonchi GASTROINTESTINAL: Abdomen soft, non-tender, nondistended. MUSCULOSKELETAL: Extremities without clubbing, cyanosis, or edema. No joint tenderness, effusion, or edema noted. No calf tenderness. NEUROLOGICAL: Awake and alert. Motor and sensory grossly within normal limits. Normal speech. Laboratory Laboratory Tests Test 06/04/17 16:45 White Blood Count 60.8 Red Blood Count 3.65 Hemoglobin 10.8 Hematocrit 32.7 Mean Corpuscular Volume 89.5 Mean Corpuscular Hemoglobin 29.5 Mean Corpuscular Hemoglobin Concent 32.9 Red Cell Distribution Width 14.4 Platelet Count 201 Mean Platelet Volume 7.7 CBC Comment AUTO DIFF Differential Total Cells Counted 100 Neutrophils % (Manual) 7 Band Neutrophils % 1 Lymphocytes % 90 Monocytes % 2 Neutrophils # (Manual) 4.9 Differential Comment FINAL DIFF MANUAL Smudge Cells PRESENT Platelet Estimate NORMAL Platelet Morphology Comment NORMAL Red Cell Morphology Comment NORMAL Prothrombin Time 11.7 Prothromb Time International Ratio 1.2 Blood Urea Nitrogen 19 Creatinine 1.10 Random Glucose 114 Calcium Level 9.0 Sodium Level 133 Potassium Level 3.5 Chloride Level 99 Carbon Dioxide Level 25.1 Anion Gap 9 Estimat Glomerular Filtration Rate 65 Troponin I 0.04 B-Type Natriuretic Peptide 105 Date/Time Source Procedure Growth Status 06/04/17 17:05 Blood Peripheral Aerobic Blood Culture Pending Received 06/04/17 17:05 Blood Peripheral Anaerobic Blood Culture Pending Received Result Diagram: 06/04/17 1645 06/04/17 1645 Caprini VTE Risk Assessment Caprini VTE Risk Assessment: No/Low Risk (score <= 1) Caprini Risk Assessment Model Point Value = 1 Point Value = 2 Point Value = 3 Point Value = 5 Age 41-60 Minor surgery BMI > 25 kg/m2 Swollen legs Varicose veins or History of unexplained or recurrent spontaneous Oral contraceptives or hormone replacement Sepsis (< 1 month) Serious lung disease, including pneumonia (< 1 month) Abnormal pulmonary function Acute myocardial infarction Congestive heart failure (< 1 month) History of inflammatory bowel disease Medical patient at bed rest Age 61-74 Arthroscopic surgery Major open surgery (> 45 min) Laparoscopic surgery (> 45 min) Malignancy Confined to bed (> 72 hours) Immobilizing plaster cast Central venous access Age >= 75 History of VTE Family history of VTE Factor V Leiden Prothrombin [id number] Lupus anticoagulant Anticardiolipin antibodies Elevated serum homocysteine Heparin-induced thrombocytopenia Other congenital or acquired thrombophilia Stroke (< 1 month) Elective arthroplasty Hip, pelvis, or leg fracture Acute spinal cord injury (< 1 month) Prophylaxis Regimen Total Risk Factor Score Risk Level Prophylaxis Regimen 0-1 Low Early ambulation 2 Moderate Order ONE of the following: *Sequential Compression Device (SCD) *Heparin 5000 units SQ BID 3-4 Higher Order ONE of the following medications: *Heparin 5000 units SQ TID *Enoxaparin/Lovenox 40 mg SQ daily (WT < 150 kg, CrCl > 30 mL/min) *Enoxaparin/Lovenox 30 mg SQ daily (WT < 150 kg, CrCl > 10-29 mL/min) *Enoxaparin/Lovenox 30 mg SQ BID (WT < 150 kg, CrCl > 30 mL/min) AND/OR *Sequential Compression Device (SCD) 5 or more Highest Order ONE of the following medications: *Heparin 5000 units SQ TID (Preferred with Epidurals) *Enoxaparin/Lovenox 40 mg SQ daily (WT < 150 kg, CrCl > 30 mL/min) *Enoxaparin/Lovenox 30 mg SQ daily (WT < 150 kg, CrCl > 10-29 mL/min) *Enoxaparin/Lovenox 30 mg SQ BID (WT < 150 kg, CrCl > 30 mL/min) AND *Sequential Compression Device (SCD) Assessment and Plan Problem List: (1) Pneumonia ICD Code: J18.9 - Pneumonia, unspecified organism (2) Leukocytosis ICD Code: D72.829 - Elevated white blood cell count, unspecified Status: Acute (3) NSTEMI (non-ST elevated myocardial infarction) ICD Code: I21.4 - Non-ST elevation (NSTEMI) myocardial infarction Assessment and Plan 77 y/o male with a history of HTN, DM, and HLD presented to the ED with complaints of a cough and fatigue. Sirs, WBC 60.8, suspect possible pneumonia, no fevers -IV antibiotics vancomycin and Zosyn -Consult infectious disease for recommendations -Sputum culture ordered -DuoNeb's -Blood cultures pending -Lactic acid ordered -IVF for hydration Diabetes, chronic -Accu-Cheks with sliding scale -Hold home metformin Elevated troponin 3 days ago -Serial troponin ordered -Cardiology consult for possible catheter if patient agrees DVT prophylaxis: SCDs Discussed Condition With Patient and RN Problem Qualifiers (1) Pneumonia: Qualified Codes: J18.1 - Lobar pneumonia, unspecified organism (2) Leukocytosis: Qualified Codes: D72.829 - Elevated white blood cell count, unspecified Sammie Bauman Jun 04, 2017 23:54
[2017-06-05] VITALS (9 sets, daily range): BP systolic 123–139; BP diastolic 65–76; PULSE 66–80; RESP 16–20; TEMP 97.6–97.9; O2SAT 96–100
[2017-06-05] MEDS ORDERED: RESP: ALBUTEROL 2.5 MG/IPRATROPIUM 0.5 MG NEB (PRN) NEB (01:00)
[2017-06-05] MEDS ORDERED: Vancomycin Consult Pharmacy 1 EA OTHER SCH (01:15)
[2017-06-05] MEDS ORDERED: VANCOMYCIN INJ 1,000 MG in SODIUM CHLOR 0.9% 250 ML INJ 250 ML IV ONE (01:15)
[2017-06-05 01:53] LABS: TROPONIN I 0.05 NG/ML (0.02-0.05)
[2017-06-05] MEDS: SODIUM CHLOR 0.9% 1000 ML INJ 1,000 ML IV SCH ×3 (01:58→18:21)
[2017-06-05] MEDS: PIPERACIL-TAZO 4.5 GM PREMIX 100 ML IV SCH ×3 (03:02→14:03)
[2017-06-05] MEDS: RESP: ALBUTEROL 2.5 MG/IPRATROPIUM 0.5 MG NEB (SCH) NEB ×4 (03:54→21:59)
[2017-06-05] MEDS: INSULIN ASPART SUPPLEMENTAL SCALE SQ SCH ×4 (07:38→20:12)
[2017-06-05 07:59] LABS: ALBUMIN 2.6 GM/DL (3.4-5.0); ALT (GPT) 28 U/L (12-78); AST (GOT) 32 U/L (15-37); BICARBONATE 26.8 MEQ/L (21.0-32.0); BLOOD UREA NITROGEN 15 MG/DL (7-18); CALCIUM 8.6 MG/DL (8.5-10.1); CHLORIDE 101 MEQ/L (98-107); CREATININE 0.95 MG/DL (0.60-1.30); GLOMERULAR FILTRATION RATE 76 ML/MIN (>89); GLUCOSE,RANDOM 135 MG/DL (74-106); SODIUM (NA) 136 MEQ/L (136-145)
[2017-06-05 08:02] LABS: ALKALINE PHOSPHATASE 48 U/L (45-117); TOTAL BILIRUBIN ADULT 0.9 MG/DL (0.2-1.0); TOTAL PROTEIN 5.9 GM/DL (6.4-8.2); TROPONIN I 0.04 NG/ML (0.02-0.05)
[2017-06-05] MEDS: DOCUSATE SODIUM 50 MG/SENNA 8.6 MG TAB PO SCH ×2 (09:42→20:11)
[2017-06-05] MEDS: SODIUM CHLORIDE 0.9% FLUSH 10 ML FLUSH IV FLUSH SCH ×2 (09:42→20:12)
[2017-06-05] MEDS ORDERED: ASPIRIN EC 81 MG TABEC PO ONE (10:45)
--- NOTE | 2017-06-05 11:00 | MB ---
cc: ANUSHKA CELIS M.D. DATE OF CONSULTATION: 06/05/2017 REASON FOR CONSULTATION: HISTORY OF PRESENT ILLNESS: Raphael is a very pleasant 77-year-old gentleman who was recently admitted to [facility], due to some weakness and fatigue, shortness of breath. He has some language barriers. He is from [facility] and speaks [place]. He does not give elaborate responses. He left AMA due to his being in poor state of health. He comes back to "complete his workup" and treat his lung infection. He denies any chest pain, fever, chills, cough, GI or bleeding, orthopnea, dizziness. He had CT of the chest on 06/01/17 which showed dense atherosclerotic calcifications of the coronary arteries, bibasilar atelectatic changes with patchy parenchymal component on the left, early pneumonic infiltrate, left base cannot be "excluded." Bilateral pleural effusions. PAST MEDICAL HISTORY: 1. Arthritis. 2. Hyperlipidemia. 3. Type 2 diabetes mellitus. 4. Left bundle-branch block. 5. Hypertension. 6. He had a non STEMI during his previous admission in May 2017. SOCIAL HISTORY He does drink wine. Denies tobacco use, he used to smoke previously. ALLERGIES: NONE. MEDICATIONS PRIOR TO ADMISSION: 1. Levaquin. 2. Metformin. 3. Hypertension medicine. 4. "Cholesterol medicine." MEDICATIONS IN THE HOSPITAL: 1. Albuterol 2. Piperacillin/tazobactam. PHYSICAL EXAMINATION: VITAL SIGNS: Blood pressure 139/76, pulse 99, temperature 97.9, sats 97 to 100% on room air. General: He is alert and oriented x3 in no acute distress. Neck: Supple. No JVD, no bruit. Cardiovascular: S1-S2. No murmurs, rubs, or gallops. Lungs: Clear. Notable for decreased air movement at the bases, otherwise clear to auscultation bilaterally. Abdomen: Soft, nontender, nondistended, positive bowel sounds. Extremities: No clubbing, cyanosis or edema. IMAGING STUDIES: Chest x-ray shows stable very small bilateral pleural effusions. EKG shows normal sinus rhythm with left bundle-branch block. Repeat EKG shows normal sinus rhythm with left bundle-branch block. LABORATORY DATA White count is 60.8, hemoglobin of 10.8, hemoglobin 32.7, platelet count 201. Sodium on admission was 133, potassium 3.5, currently 3.3, chloride 101, bicarb 26.8, BUN 15, creatinine 0.95, glucose 135. LFTs normal. Troponin 0.04, 0.05 and 0.04. BNP is 105. Albumin 2.6. INR 1.2. DIAGNOSIS 1. Pneumonia. 2. Elevated white count. 3. Recent non STEMI. 4. Coronary artery disease. 5. Diabetes mellitus. 6. Anemia. 7. Hypokalemia. 8. Hyperglycemia. 9. Hyponatremia. 10. Decompensated congestive heart failure. 11. Pleural effusions. 12. Hypoalbuminemia. DISCUSSION At this point in time I think the patient needs a hematology consult to workup his markedly elevated white count. If there are no contraindications from a hematologic standpoint, I do think that left and right heart catheterization are medically necessary due to recent non STEMI, decompensated congestive heart failure, dense coronary calcification on CT angiography, multiple cardiac risk factors. Will also start aspirin 81 milligrams daily. MD SYDNEE Gama/JOSE A /10:29 AM /10:43 AM
--- NOTE | 2017-06-05 14:33 | HHI.PR ---
Subjective Remarks Patient reports is feeling slightly better. Still having a significant cough. He denies chest pain. He is now agreeable to heart catheterization. Objective Vitals Vital Signs Date Time Temp Pulse Resp B/P (MAP) Pulse Ox O2 Delivery O2 Flow Rate FiO2 06/05/17 12:00 97.7 77 18 131/67 (88) 96 06/05/17 08:00 97.9 73 16 139/76 (97) 97 06/05/17 08:00 97 Room Air 06/05/17 04:00 Room Air 06/05/17 04:00 97.8 79 17 131/67 (88) 100 06/05/17 03:58 97 06/05/17 03:44 74 06/05/17 00:00 Room Air 06/04/17 23:46 70 06/04/17 23:00 Room Air 06/04/17 22:53 73 06/04/17 21:43 97.4 80 19 142/67 (92) 97 06/04/17 21:28 06/04/17 20:13 98 21 06/04/17 19:15 98 Room Air 06/04/17 19:15 78 16 124/71 (88) 98 Room Air 06/04/17 16:47 98 Room Air 06/04/17 16:47 98 Room Air 06/04/17 15:20 97.9 99 16 138/79 (98) 97 I/O 06/04/17 06/04/17 06/04/17 06/05/17 06/05/17 06/05/17 07:00 15:00 23:00 07:00 15:00 23:00 Intake Total 300 ml 640 ml Output Total 400 ml 250 ml Balance -100 ml 390 ml Intake Oral 200 ml 290 ml IV Total 100 ml 350 ml Output Urine Total 400 ml 250 ml # Voids 2 # Bowel Movements 0 Result Diagram: 06/04/17 1645 06/05/17 0555 Objective Remarks GENERAL: Obese male in no acute distress. CARDIOVASCULAR: Normal rate and regular rhythm without murmurs, gallops, or rubs. RESPIRATORY: Good respiratory efforts. Scattered rhonchi bilaterally. No wheezing. GASTROINTESTINAL: Abdomen soft, non-tender, non-distended. Normal active bowel sounds MUSCULOSKELETAL: Extremities without cyanosis, or edema. NEURO: Alert & Oriented x4 to person, place, time, situation. Moves all ext x4 PSYCH: Appropriate mood and affect. A/P Problem List: (1) Pneumonia ICD Code: J18.9 - Pneumonia, unspecified organism (2) Leukocytosis ICD Code: D72.829 - Elevated white blood cell count, unspecified Status: Acute (3) NSTEMI (non-ST elevated myocardial infarction) ICD Code: I21.4 - Non-ST elevation (NSTEMI) myocardial infarction Assessment and Plan 77 y/o male with a history of HTN, DM, and HLD presented to the ED with complaints of a cough and fatigue. Patient left AMA a couple of days ago when he was found to have pneumonia and elevated troponins. Probable pneumonia: Given clinical symptoms and chest CT findings of a few days ago, symptomatology more consistent with pneumonia. - Continue IV antibiotics with vancomycin and Zosyn. - Infectious disease consulted for recommendations. - Follow-up cultures. Possible CLL. WBC in the 60s. Peripheral smear a few days ago with report suggestive of CLL - Hematology consulted. Defer further workup and treatment to hematology. Diabetes, chronic -Accu-Cheks with sliding scale -Hold home metformin Elevated troponin 3 days ago -Patient seen by geographic information systems analyst. Plan for heart catheterization tomorrow. - No chest pain. Continue aspirin. DVT prophylaxis: Heparin Problem Qualifiers (1) Pneumonia: Qualified Codes: J18.1 - Lobar pneumonia, unspecified organism (2) Leukocytosis: Qualified Codes: D72.829 - Elevated white blood cell count, unspecified Antony Neff MD Jun 05, 2017 14:33
--- NOTE | 2017-06-05 15:39 | EKG ---
Date Performed: 06/04/2017 Time Performed: 16:34:26 PTAGE: 77 years EKG: Normal Sinus rhythm LEFT BUNDLE BRANCH BLOCK ABNORMAL ECG NO PREVIOUS TRACING DOCTOR: Ivan Vargas Interpretating Date/Time 06/05/2017 15:38:46
--- NOTE | 2017-06-05 15:39 | EKG ---
Date Performed: 06/04/2017 Time Performed: 22:54:12 PTAGE: 77 years EKG: Sinus rhythm MARKED RIGHT AXIS DEVIATION INTRAVENTRICULAR CONDUCTION DELAY ABNORMAL ECG Since PREVIOUS TRACING , no significant change noted PREVIOUS TRACIN06/04/2017 16.34 DOCTOR: Ivan Vargas Interpretating Date/Time 06/05/2017 15:39:00
[2017-06-05] MEDS: HEPARIN SODIUM - SQ 10,000 UNITS/ML VIAL SQ SCH (16:00)
[2017-06-05 16:35] LABS: HEMATOCRIT 27.8 % (39.0-51.0); HEMOGLOBIN 9.3 GM/DL (13.0-17.0); MEAN CELL VOLUME 91.7 FL (80.0-100.0); MEAN CORPUSCULAR HEMOGLOBIN 30.7 PG (27.0-34.0); MEAN CORPUSCULAR HGB CONC 33.4 % (32.0-36.0); MEAN PLATELET VOLUME 7.9 FL (7.0-11.0); PLATELET COUNT 133 TH/MM3 (150-450); RED BLOOD COUNT 3.03 MIL/MM3 (4.50-5.90); RED CELL DISTRIBUTION WIDTH 14.7 % (11.6-17.2); WHITE BLOOD COUNT 52.4 TH/MM3 (4.0-11.0)
[2017-06-05] MEDS ORDERED: LEVOFLOXACIN 750 MG TAB PO SCH (17:00)
[2017-06-05 17:02] LABS: BANDS 1 % (0-6); MONOCYTES 1 % (0-8); NEUTROPHIL # MANUAL DIFF 7.3 TH/MM3 (1.8-7.7); POLYS (SEG NEUTROPHILS) 13 % (16-70)
--- NOTE | 2017-06-05 17:04 | MB ---
cc: ANUSHKA CELIS M.D., ALEXANDRA A. MD DEVERAS, RUBY ANNE E. M.D. DATE OF CONSULTATION 06/05/2017 New patient consultative summary DATE OF [address] Celis CHIEF COMPLAINT Dr. Celis requested consultation for Mr. Javier regarding lymphocytosis suspicious for chronic lymphocytic leukemia. HISTORY OF PRESENT ILLNESS Mr. Javier is a proud 77-year-old service-connected . He usually receives his care at the [facility]. He was being admitted to [facility] for pneumonia. He was well until 5 days prior to his presentation when he felt weak and fell backwards, scraped his right forearm. He felt weak. He had an almost collapse. He had an elevated white count in the emergency room. Chest x-ray although unremarkable a CT angiogram was performed that shows by a bibasilar faint infiltrates. Additional finding shows dense calcification on his CT scan of the chest. There was report of elevated troponin and a left bundle-branch block on EKG. Cardiology was consulted. Dr. Celis recommended an aspirin, lovastatin, metoprolol. He is undergoing cardiac evaluation. He refuses cardiac catheterization for a non-ST elevated TN. Hematology/Oncology is consulted for the leukocytosis. Review of the electronic medical record shows a white count of 18,000 on 06/01/2017. His white count increased to 30,000 on 06/02 and 60,000 on the day of the consultation. It is noted that the percentage of lymphocytes is elevated. There are smudge cells. Peripheral smear from 06/02/2017 showed atypical lymphocytosis suspicious for chronic lymphoproliferative disorder. Mr. Javier denies any fevers, chills or night sweats. He reports that he feels well except for the pneumonia which brought him in. Denies any adenopathy. He denies any bleeding. He is agreeable to proceed with diagnostic evaluation as it only involves a blood test. PAST MEDICAL HISTORY 1. Coronary artery disease. 2. Lymphocytosis. 3. Community acquired pneumonia. 4. Non-ST elevated TN. 5. Mild anemia. 6. Diabetes. 7. Hyperlipidemia. 8. Hypertension. PAST SURGICAL HISTORY None. ALLERGIES No known drug allergies. FAMILY HISTORY No family history of cancer. He is proud to report that his relatives, mother and father. lived to be at their 90s of old age. SOCIAL HISTORY Quit smoking in 1960s. , caregiver for his . He denies any alcohol or illicit drug use. CURRENT MEDICATIONS 1. Aspirin. 2. Vancomycin. 3. Albuterol. 4. Piperacillin / tazobactam. 5. Duonebs. PHYSICAL EXAMINATION VITAL SIGNS: Temperature 97.7, heart rate 77, respiratory 18, blood pressure 131/67, saturation 96%. GENERAL: Mr. Javier is a well-developed, well-nourished, robust appearing 77-year-old elderly man. HEENT: His pupils are round, reactive to light and accommodation. Oropharynx is clear. NECK: Supple with no adenopathy. No axillary adenopathy. LUNGS: With wheezing at the bases. CARDIOVASCULAR: Exam reveals a normal rate, rhythm. ABDOMEN: Benign, mildly distended. No organomegaly appreciated. EXTREMITIES: Lower extremities with no edema. NEUROLOGIC: Exam is nonfocal. SKIN: He has lacerations healing in the right forearm. ASSESSMENT/PLAN Mr. Javier is a 77-year-old man with multiple medical problems including hypertension, hyperlipidemia, diabetes, arthritis. He presented with weakness and presumptive diagnosis pneumonia. He has evidence for non-ST elevated TN. He is back to complete his workup. I discussed at length the laboratory findings of leukocytosis / lymphocytosis. He has evidence of anemia. He presented with thrombocytopenia which is now resolved. I recommend flow cytometric analysis to confirm a diagnosis of chronic lymphocytic leukemia. It is hard to determine if he has splenic involvement with the thrombocytopenia. I suspect it may be from acute illness. His lymphocytosis is significantly increased over the last several days. Not certain the cause of this or exposure to steroids possibly. Will continue to follow. He is asymptomatic despite the increase in his white blood cell count. No specific therapy is required for underlying chronic lymphoproliferative disorder. We will define if further with the flow cytometric analysis. He intends to [facility]. He offers no complaints at present. I will obtain an ultrasound of the liver and spleen. Clinically there is no organomegaly. His questions were answered to his satisfaction. Celine Mckeon MD RAD/HOPE /4:15 PM /4:39 PM
[2017-06-05 17:05] LABS: LYMPHOCYTES 85 % (9-44)
--- NOTE | 2017-06-05 19:19 | PD.ID.CON ---
History of Present Illness Service ID Consult Requested By Dr Bauman Reason for Consult Leukocytosis Primary Care Physician [facility] Diagnoses: History of Present Illness 77 yo male presented after 2 episodes of syncope ALso reports been diagnossed, treated for PNA 1 week ago Improved Symnptoms resolving with diminishing cough and clearing of sputum No fever on presentation' + leukocytosis with lymphocytosis of 90% His ANC is wnl however Pt was started on broad spectrum abx CTA from 06/01 showed atelectasis Review of Systems Except as stated in HPI: all other systems reviewed are Neg Past Family Social History Allergies: Coded Allergies: No Known Allergies (Unverified , 06/04/17) Past Medical History 1. Arthritis. 2. Hyperlipidemia. 3. Type 2 diabetes mellitus. 4. Left bundle-branch block. 5. Hypertension. 6. He had a non STEMI during his previous admission in May 2017. Past Surgical History none Active Ordered Medications Medications where reviewed in EMR Antibiotics Include: zosyn vancomycin Family History reviewed Non contributory Social History He does drink wine. Denies tobacco use, he used to smoke previously. Physical Exam Vital Signs Vital Signs Date Time Temp Pulse Resp B/P (MAP) Pulse Ox O2 Delivery O2 Flow Rate FiO2 06/05/17 16:00 97.9 78 18 129/74 (92) 96 06/05/17 12:00 97.7 77 18 131/67 (88) 96 06/05/17 08:00 97.9 73 16 139/76 (97) 97 06/05/17 08:00 97 Room Air 06/05/17 04:00 Room Air 06/05/17 04:00 97.8 79 17 131/67 (88) 100 06/05/17 03:58 97 06/05/17 03:44 74 06/05/17 00:00 Room Air 06/04/17 23:46 70 06/04/17 23:00 Room Air 06/04/17 22:53 73 06/04/17 21:43 97.4 80 19 142/67 (92) 97 06/04/17 21:28 06/04/17 20:13 98 21 06/04/17 19:15 98 Room Air 06/04/17 19:15 78 16 124/71 (88) 98 Room Air Physical Exam CONSTITUTIONAL/GENERAL: This is an adequately nourished patient, in no apparent distress. TUBES/LINES/DRAINS: SKIN: No jaundice, rashes, or lesions. Skin temperature appropriate. Not diaphoretic. HEAD: Atraumatic. Normocephalic. EYES: Pupils equal and round and reactive. Extraocular motions intact. No scleral icterus. No injection or drainage. Fundi not examined. ENT: Hearing grossly normal. Nose without bleeding or purulent drainage. Throat without visible erythema, exudates, masses, or lesions. NECK: Trachea midline. Supple, nontender. No palpable thyroid enlargement or nodularity. CARDIOVASCULAR: Regular rate and rhythm without murmurs, gallops, or rubs. No JVD. Peripheral pulses symmetric. RESPIRATORY/CHEST: Symmetric, unlabored respirations. Clear to auscultation. Breath sounds equal bilaterally. No wheezes, rales, or rhonchi. GASTROINTESTINAL: Abdomen soft, non-tender, nondistended. No hepato-splenomegaly , or palpable masses. No guarding. Bowel sounds present. GENITOURINARY: Without palpable bladder distension. e. MUSCULOSKELETAL: Extremities without clubbing, cyanosis, or edema. No joint tenderness or effusion noted. No calf tenderness. No mottling or clubbing. LYMPHATICS: No palpable cervical or supraclavicular adenopathy. NEUROLOGICAL: Awake and alert. Motor and sensory grossly within normal limits. Follows commands. Clear speech. Moves all extremities. PSYCHIATRIC: No obvious anxiety/depression. no apparent hallucinations or other psychotic thought process. Laboratory Laboratory Tests Test 06/05/17 01:08 06/05/17 05:55 06/05/17 15:54 Lactic Acid Level 1.0 Total Creatine Kinase 107 74 Troponin I 0.05 0.04 Blood Urea Nitrogen 15 Creatinine 0.95 Random Glucose 135 Total Protein 5.9 Albumin 2.6 Calcium Level 8.6 Alkaline Phosphatase 48 Aspartate Amino Transf (AST/SGOT) 32 Alanine Aminotransferase (ALT/SGPT) 28 Total Bilirubin 0.9 Sodium Level 136 Potassium Level 3.3 Chloride Level 101 Carbon Dioxide Level 26.8 Anion Gap 8 Estimat Glomerular Filtration Rate 76 White Blood Count 52.4 Red Blood Count 3.03 Hemoglobin 9.3 Hematocrit 27.8 Mean Corpuscular Volume 91.7 Mean Corpuscular Hemoglobin 30.7 Mean Corpuscular Hemoglobin Concent 33.4 Red Cell Distribution Width 14.7 Platelet Count 133 Mean Platelet Volume 7.9 CBC Comment AUTO DIFF Differential Total Cells Counted 100 Neutrophils % (Manual) 13 Band Neutrophils % 1 Lymphocytes % 85 Monocytes % 1 Neutrophils # (Manual) 7.3 Differential Comment FINAL DIFF MANUAL Platelet Estimate LOW Platelet Morphology Comment NORMAL Red Cell Morphology Comment NORMAL Date/Time Source Procedure Growth Status 06/04/17 17:05 Blood Peripheral Aerobic Blood Culture - Preliminary NO GROWTH IN 1 DAY Resulted 06/04/17 17:05 Blood Peripheral Anaerobic Blood Culture - Preliminary NO GROWTH IN 1 DAY Resulted Result Diagram: 06/05/17 1554 06/05/17 0555 Imaging Last Impressions Chest X-Ray 06/04/17 1623 Signed Impressions: Service Date/Time: Tuesday, June 04, 2017 16:55 - CONCLUSION: Stable very small bilateral pleural effusions. Otherwise, no acute finding is identified. Daniel Zurita MD Assessment and Plan Assessment and Plan ? PNA - clincailly and radiologically resolving Leukocytosis with smear cw lymphoproliferative disorder Recent non STEMI and decompensated CHF -plan for cath - dc abx - hematology following Discussed Condition With Anila Nguyen MD Jun 05, 2017 19:19
[2017-06-05] MEDS ORDERED: VANCOMYCIN INJ 1,250 MG in SODIUM CHLOR 0.9% 250 ML INJ 250 ML IV SCH (20:00)
[2017-06-06] VITALS (15 sets, daily range): BP systolic 117–159; BP diastolic 68–80; PULSE 65–103; RESP 16–19; TEMP 97.3–99.6; O2SAT 95–98
[2017-06-06] MEDS: HEPARIN SODIUM - SQ 10,000 UNITS/ML VIAL SQ SCH (03:15)
[2017-06-06] MEDS: RESP: ALBUTEROL 2.5 MG/IPRATROPIUM 0.5 MG NEB (SCH) NEB ×2 (04:05→11:24)
[2017-06-06] MEDS: SODIUM CHLOR 0.9% 1000 ML INJ 1,000 ML IV SCH (04:47)
[2017-06-06] MEDS: INSULIN ASPART SUPPLEMENTAL SCALE SQ SCH ×4 (08:00→21:12)
[2017-06-06] MEDS: SODIUM CHLORIDE 0.9% FLUSH 10 ML FLUSH IV FLUSH SCH ×2 (09:00→21:00)
[2017-06-06] MEDS ORDERED: ASPIRIN EC 81 MG TABEC PO SCH (09:00)
[2017-06-06 09:28] LABS: HEMATOCRIT 30.4 % (39.0-51.0); HEMOGLOBIN 9.8 GM/DL (13.0-17.0); MEAN CELL VOLUME 92.3 FL (80.0-100.0); MEAN CORPUSCULAR HEMOGLOBIN 29.6 PG (27.0-34.0); MEAN CORPUSCULAR HGB CONC 32.1 % (32.0-36.0); MEAN PLATELET VOLUME 7.9 FL (7.0-11.0); PLATELET COUNT 139 TH/MM3 (150-450); RED CELL DISTRIBUTION WIDTH 14.9 % (11.6-17.2); RETIC # 29.4 MIL/L (20.0-150.0); RETIC % 0.9 % (0.4-3.0)
--- NOTE | 2017-06-06 09:49 | RADRPT ---
EXAM DATE/TIME: 06/06/2017 08:28 [place] COMPARISON: No previous studies available for comparison. INDICATIONS : Evaluate liver/spleen. MEDICAL HISTORY : Hypertension. Hypercholesterolemia. Hearing aids. Dentures. Anticoagulant therapy. Ulcer. Arthritis . Diabetes. SURGICAL HISTORY : ENCOUNTER: Initial ACUITY: 1 day PAIN SCORE: 3/10 LOCATION: Bilateral upper quadrant MEASUREMENTS: LIVER: 19.8 cm length COMMON DUCT: 3 mm RIGHT KIDNEY: 12.3 x 5.9 x 5.5 cm SPLEEN: 21.2 cm length FINDINGS: LIVER: Mildly coarsened echotexture without focal lesion or ductal dilatation. COMMON DUCT: No intraluminal mass or stone visualized. GALLBLADDER: Focal and mildly lobular echogenic material within the dependent gallbladder which does not demonstra te shadowing and has an appearance characteristic of either sludge or non-shadowing stones. The gall bladder wall is normal thickness. No pericholecystic fluid. PANCREAS: Not well seen. RIGHT KIDNEY: No evidence of hydronephrosis. There are 2 cysts, exophytic from the lower pole measuring 1.9 x 1.4 cm and in the parenchyma of the midpole measuring 1.5 x 1.4 cm. SPLEEN: No focal lesion; mildly heterogeneous echotexture. CONCLUSION: 1. Echogenic material within the lumen of the gallbladder could represent either non-shadowing stones or sludge. 2. Normal dimension common hepatic duct. 3. The liver and spleen are both enlarged without focal lesions. Rajendra Mayen MD on June 06, 2017 at 9:43 Board Certified Radiologist. This report was verified electronically.
[2017-06-06] MEDS: DOCUSATE SODIUM 50 MG/SENNA 8.6 MG TAB PO SCH ×2 (09:50→21:00)
[2017-06-06 09:51] LABS: BICARBONATE 26.3 MEQ/L (21.0-32.0); CREATININE 0.9 MG/DL (0.60-1.30)
[2017-06-06 09:52] LABS: CALCIUM 9.2 MG/DL (8.5-10.1)
--- NOTE | 2017-06-06 13:20 | HHI.PR ---
Subjective Remarks Awaiting heart catheterization today. He is anxious to "get this over with". He denies chest pain or shortness of breath currently. Objective Vitals Vital Signs Date Time Temp Pulse Resp B/P (MAP) Pulse Ox O2 Delivery O2 Flow Rate FiO2 06/06/17 12:02 97.5 73 18 159/77 (104) 97 06/06/17 11:22 97 06/06/17 08:02 98.1 77 17 156/79 (104) 96 06/06/17 04:00 Room Air 06/06/17 04:00 97.3 80 19 150/80 (103) 95 06/06/17 03:53 65 06/06/17 00:00 97.4 71 19 133/68 (89) 98 06/06/17 00:00 Room Air 06/05/17 23:59 70 06/05/17 20:25 70 06/05/17 20:20 Room Air 06/05/17 20:00 97.6 80 20 123/65 (84) 97 06/05/17 16:00 97.9 78 18 129/74 (92) 96 06/05/17 16:00 71 I/O 06/05/17 06/05/17 06/05/17 06/06/17 06/06/17 06/06/17 07:00 15:00 23:00 07:00 15:00 23:00 Intake Total 640 ml 1000 ml 580 ml 1000 ml Output Total 250 ml 700 ml 750 ml Balance 390 ml 1000 ml -120 ml 250 ml Intake Oral 290 ml 480 ml 0 ml IV Total 350 ml 1000 ml 100 ml 1000 ml Output Urine Total 250 ml 700 ml 750 ml # Bowel Movements 0 Result Diagram: 06/06/17 0812 06/06/17 0812 Objective Remarks GENERAL: Obese male in no acute distress. CARDIOVASCULAR: Normal rate and regular rhythm without murmurs, gallops, or rubs. RESPIRATORY: Good respiratory efforts. Scattered rhonchi bilaterally. No wheezing. GASTROINTESTINAL: Abdomen soft, non-tender, non-distended. Normal active bowel sounds MUSCULOSKELETAL: Extremities without cyanosis, or edema. NEURO: Alert & Oriented x4 to person, place, time, situation. Moves all ext x4 PSYCH: Appropriate mood and affect. A/P Problem List: (1) Pneumonia ICD Code: J18.9 - Pneumonia, unspecified organism (2) Leukocytosis ICD Code: D72.829 - Elevated white blood cell count, unspecified Status: Acute (3) NSTEMI (non-ST elevated myocardial infarction) ICD Code: I21.4 - Non-ST elevation (NSTEMI) myocardial infarction Assessment and Plan 77 y/o male with a history of HTN, DM, and HLD presented to the ED with complaints of a cough and fatigue. Patient left AMA a couple of days ago when he was found to have pneumonia and elevated troponins. Probable pneumonia: Given clinical symptoms and chest CT findings of a few days ago, symptomatology more consistent with pneumonia. - Continue IV antibiotics with vancomycin and Zosyn. - Infectious disease consulted for recommendations. - Follow-up cultures. Possible CLL. WBC in the 60s. Peripheral smear a few days ago with report suggestive of CLL -Appreciate hematology following, flow cytometry ordered per hematology. No treatment indicated at this time for chronic underlying CLL. Diabetes, chronic -Accu-Cheks with sliding scale -Hold home metformin Elevated troponin 3 days ago -Patient seen by geographic area intelligence officer. Plan for heart catheterization today. - No chest pain. Continue aspirin. DVT prophylaxis: Heparin Problem Qualifiers (1) Pneumonia: Qualified Codes: J18.1 - Lobar pneumonia, unspecified organism (2) Leukocytosis: Qualified Codes: D72.829 - Elevated white blood cell count, unspecified Antony Neff MD Jun 06, 2017 13:20
[2017-06-06] MEDS ORDERED: HEPARIN-NS/PF FLUSH BAG 1,000 ML IV FLUSH ONE (13:30)
[2017-06-06] MEDS ORDERED: MIDAZOLAM HCL 2 MG/2 ML VIAL ONE (13:57)
[2017-06-06] MEDS ORDERED: HEPARIN SODIUM - IV 10,000 UNITS/10 ML VIAL ONE (14:05)
[2017-06-06] MEDS ORDERED: TIROFIBAN INFUSION INJ 250 ML IV ONE (14:16)
[2017-06-06] MEDS ORDERED: CLOPIDOGREL 300 MG TAB ONE (14:23)
--- NOTE | 2017-06-06 14:43 | CATHPROC ---
[employer] HIS Report Study Information Study Number Admission Scheduled Start Study Start [id number] Jun 04 2017 6:34PM 06/06/2017 Jun 06 2017 1:13PM [address] Service Cardiac Catheterization Admit Source Facility Department Emergency department [facility] Physician and Clinical Staff Initial Ivan Mcclelland Director Of Loss Prevention Vik Silva,KELLEY Director Of Loss Prevention Ines Devi RN Other Emely Juan,RT(R) Recorder Lynne Alston,COATER SMOKING PIPE TECH2 Scrub Joseline Smith,RT(R) (BS) Procedures Performed Procedure Location (Site) Vessel Name Coronary Angiograms LCA Left Coronary Coronary Angiograms RCA Right Coronary LV Gram-hand inj. LV LV Ventricle Stent CIRC Prox CIRC Wire insertion Fem Art (right) Femoral Art Equipment Time Seal Skinner Description Size Mfg Part Number Used/Scraped [id number] 14:13 PERLA CRITICAL CARE WIRE, ASAHI PROWATER 180CM 180CM Used *[id number] TRANSDUCER, TRUWAVE [id number] 13:33 MARTINES MARSH * Used W/STOCKCOCK *[id number] [id number] *[id number] 538-422 *[id number] 538-421 *[id number] [id number] *[id number] *[id number] 13:33 MEDLINE INDUSTRIES PACK, CCL CUSTOM * Used *[id number] 13:33 MEDLINE PACER PEN, SKIN DUAL W/ RULER * Used *[id number] 14:15 MEDTRONIC STENT, 4.0 12 INTEGRITY 4.0 12 Used *[id number] 14:16 RentFeeder MEDICAL 30 KARLA INDEFLATOR Used *[id number] 14:10 Rent[employer]eder MEDICAL SHEATH, FR6.5 PRELUDE 11CM FR 6.5 038ACT Used *[id number] 13:33 [employer] MEDICAL WIRE, 3MMJ .035 180CM 180CM Used *[id number] 13:33 NAMIC MANIFOLD, 4 PORT * Used *[id number] 13:33 NYCOMED OMNIPAQUE, 350 MG, 150ML 150ML [id number] Used [id number] 13:33 TREVIZO MEDICAL BLANKET,WARM AIR CCL * Used *[id number] 13:33 TERUMO MEDICAL SHEATH, FR4 TERUMO (10CM) FR 4 Used *[id number] Equipment Model, Serial, Lot Number and Expiration Data Description Model Number Serial Number Lot Number Expiration Date STENT, 4.0 12 INTEGRITY [id number] 08-23-2018 History: Current Medications Medication Dosage/Unit Route Frequency Last Date/Time Taken Glucophage Statins (any) History: Allergies Allergy Reaction No Known Allergies History: Risk Factors Family History of Hypertension Dyslipidemia Previous UT Previous Heart Failure Premature CAD Yes Yes No No Yes Prior Valve Prior PCI Prior CABG Surgery No No No Cerebrovascular Peripheral Artery Chronic Lung On Dialysis Diabetes Diabetes Therapy Disease Disease Disease No No No No Yes Oral History: Symptoms/Diagnosis Selection Items SOB History: Stress Tests Stress or Imaging Studies Performed Yes Standard Exercise Stress Test No Stress Echo No Stress Test SPECT No Stress Test CMR No Cardiac CTA Coronary Calcium Score Yes No History: Other Current Smoker Method Quit No Cigarettes 50 Years Ago Labs Hgb (g/dl) Hct (%) WBC (l/cumm) Platelets (thousands) 11.60-17.00 35.00-51.00 4.00-11.00 150.00-450.00 9.8 30.4 56 139 Glucose (mg/dl) BUN (mg/dl) Creatinine (mg/dl) BUN:Creatinine (1:x) 74.00-106.00 7.00-18.00 0.50-1.30 10.00-20.00 105 12 0.9 13.3 Na (meq/l) K (meq/l) 136.00-145.00 3.50-5.10 139 3.4 INR (PTT:PT) 0.90-1.10 1.2 Troponin I (ng/ml) 0.02-0.05 0.04 Medication Medication Total Dose (Bolus/Oral) Medication Total Dosage/Unit 1% XYLOCAINE 20 mL AGGRASTAT BOLUS 41 mL HEPARIN 5700 units PLAVIX 600 mg VERSED 1 mg Medications (Bolus/Oral) Medication Time Given Dosage/Unit Administered By Reason 1% XYLOCAINE 06/06/2017 1:58:30 PM 20 mL Sam, Ivan 20 mL 1% XYLOCAINE given in lab by Sam Ivan in Right Groin via Subcutaneous. VERSED 06/06/2017 2:00:27 PM 1 mg Sam, Ivan 1 mg VERSED given in lab by Sam Ivan in Left Forearm via Peripheral IV. HEPARIN 06/06/2017 2:06:52 PM 5700 units Vik Silva 5700 units HEPARIN given in lab by Vik Silva RN in Left Forearm via Peripheral IV. Ordered by Ivan Choe. AGGRASTAT BOLUS 06/06/2017 2:21:56 PM 41 mL Vik Silva 41 mL AGGRASTAT BOLUS given in lab by Vik Silva RN in Left Forearm via Peripheral IV. Ordered by Ivan Vargas. PLAVIX 06/06/2017 2:27:20 PM 600 mg Vik Silva 600 mg PLAVIX given in lab by Vik Silva RN via Oral. Ordered by Ivan Vargas. Medication (Drip) Medication Time Given Dosage/Unit Concentration/Unit Diluent (ml) Solution AGGRASTAT DRIP 06/06/2017 2:25:18 PM 0.15 mcg/kg/min 12.5 mg 250 NaCl .9 0.15 mcg/kg/min AGGRASTAT DRIP given in lab by Vik Silva RN in Left Forearm via Peripheral IV. P ump/Drip Flow = 14.71 ml/hr using NaCl .9 with a concentration of 12.5 mg in 250 ml. Ordered by Ivan Vargas. IV Solutions 06/06/2017 1:33:13 PM 0 mL (IV) 500 NaCl .9 Patient arrived on IV Solutions in Left Forearm via Peripheral IV. Pump/Drip Flow = 20 ml/hr using Na Cl .9. Initial Case Assessment Cardiovascular HR Rhythm NIBP Chest Pain 78 sr 153/84 0 Circulatory - Right Pulses Dorsalis Pedis Femoral 2 3 Scale (0,1,2,3,4,d) Circulatory - Left Pulses Dorsalis Pedis Femoral 3 Scale (0,1,2,3,4,d) Neurological State Oriented to time-place- Alert Moves all extremities person Respiration - General Respiration Rate SpO2 (%) (B/min) 15 96 Final Case Assessment Cardiovascular HR Rhythm NIBP Chest Pain 75 SR 138/74 0 Circulatory - Right Pulses Dorsalis Pedis Femoral 2 3 Scale (0,1,2,3,4,d) Scale (0,1,2,3,4,d) Neurological State Oriented to time-place- Alert person Respiration - General Respiration Rate SpO2 (%) (B/min) 20 92 Chronological Log Time Study Chronological Log 13:27:05 Patient arrived via Bed. 13:27:06 Patient Name, D.O.B, / Armband Verified By R.N. 13:27:07 Consent signed by the physician and the patient and verified by the [facility] staff. 13:27:07 Pre-op and post- op instructions given; patient acknowledges understanding of instructions. 13:32:56 Verbal Stimulation=2 Physical Stimulation=2 Airway=2 Respiration=2 TOTAL=8. (0=absent, 1=li mited, 2=present) 13:33:05 Patient has been NPO for More than 6Hrs. 13:33:06 Skin Breakdown-none 13:33:08 Tequila Prominences Protected 13:33:12 A # 20 IV was noted in the Forearm (left). Grade = patent 13:33:13 Patient arrived on IV Solutions in Left Forearm via Peripheral IV. Pump/Drip Flow = 20 ml/h r using NaCl .9. 13:33:14 History and physical on the chart or being dictated. Vitals capture started with the following parameters, Patient=Adult, Interval=5 min, Initial Pr hcfllr=577 mmHg, 13:36:37 Deflation Rate=5 mmHg, Cuff placed on Left Arm 13:37:41 HR=85 bpm, IMEJ=652/84 mmhg, SpO2=96.0 %, Resp=15 B/min, Pain=0, Mendez=2 Assessment: Initial Case, HR=78 BPM, Rhythm=sr, CWKM=051/84 mmhg, Chest Pain=0 Right Pulses: Morales Ped=2, Femoral=3 13:38:06 Left Pulses: Femoral=3 Neurological: State=Alert, Ox3, GUSMAN Respiration: Resp=15 B/min, SpO2=96 % 13:41:35 Right groin prepped with 2% chlorhexidine, and draped after a 3 min. waiting time. 13:42:15 HR=77 bpm, OFUD=038/80 mmhg, SpO2=97.0 %, Resp=19 B/min 13:46:49 Pressure channel 1 zeroed. 13:47:14 HR=71 bpm, XTXT=533/77 mmhg, SpO2=96.0 %, Resp=18 B/min 13:48:51 MD paged 13:52:09 Reference ECG taken 13:52:15 HR=71 bpm, RZWM=204/74 mmhg, SpO2=94.0 %, Resp=12 B/min 13:55:57 MD arrived. 13:57:16 HR=71 bpm, HJHD=145/75 mmhg, SpO2=95.0 %, Resp=21 B/min Time Out. Correct patient, correct procedure, correct physician, power injector loaded, or not loaded with contrast with :58:28 surgical team present. Time Out Concurred by MD and individual staff in procedure. 58:28 Case Start 13:58:30 20 mL 1% XYLOCAINE given in lab by Ivan Vargas in Right Groin via Subcutaneous. 13:59:20 Access site was Right Femoral Artery. 13:59:25 A SHEATH, FR4 TERUMO (10CM) FR 4 was advanced into the Fem Art (right) using the Percutaneo us technique. 14:00:27 1 mg VERSED given in lab by Ivan Vargas in Left Forearm via Peripheral IV. A JR 4.0 INFINITI CATHETER FR 4 was advanced over a wire. OMNIPAQUE, 350 MG, 150ML 150ML was us ed for 14:00:32 injections. 14:02:13 HR=75 bpm, ZITD=731/73 mmhg, SpO2=91.0 %, Resp=27 B/min Recorded Pressure: Ao, HR=75, Condition=Condition 1 14:02:14 (Aorta) Ao 128/59/87 14:02:28 The RCA was injected and visualized at various angles. OMNIPAQUE, 350 MG, 150ML 150ML used . 14:03:58 Catheter was removed A JL 5.0 INFINITI CATHETER FR 4 was advanced over a wire. OMNIPAQUE, 350 MG, 150ML 150ML was us ed for 14:03:59 injections. 14:04:38 The LCA was injected and visualized at various angles. OMNIPAQUE, 350 MG, 150ML 150ML used . 14:06:31 Catheter was removed A PIGTAIL ANG. INFINITI CATHETER FR 4 was advanced over a wire. OMNIPAQUE, 350 MG, 150ML 150ML was used 14:06:33 for injections. 14:06:52 5700 units HEPARIN given in lab by Vik Silva, RN in Left Forearm via Peripheral IV. Ord ered by Ivan Vargas. 14:07:14 HR=75 bpm, ROVN=566/73 mmhg, SpO2=91.0 %, Resp=26 B/min Recorded Pressure: LV, HR=73, Condition=Condition 1 14:08:04 (Left Ventricle) LV 122/5/18 14:09:00 The LV was manually injected with 10 cc's and visualized. OMNIPAQUE, 350 MG, 150ML 150ML us ed. 14:09:43 Catheter was removed A SHEATH, FR6.5 PRELUDE 11CM FR 6.5 was exchanged in the Fem Art (right). This was necessary in order to 14:09:54 accomodate a larger catheter. 14:10:32 Activated Clotting Time Drawn A XB 4.0 GUIDE CATHETER FR 6 was advanced over a wire. OMNIPAQUE, 350 MG, 150ML 150ML was used for 14:10:40 injections. 14:12:15 HR=72 bpm, KBQK=066/65 mmhg, SpO2=90.0 %, Resp=26 B/min 14:12:35 A WIRE, ASAHI PROWATER 180CM 180CM was inserted via Fem Art (right). An STENT, 4.0 12 INTEGRITY 4.0 12 Bare Metal Stent was inserted through a XB 4.0 GUIDE CATHETER FR 6 over a 14:14:13 WIRE, ASAHI PROWATER 180CM 180CM. 14:15:18 ACT (Normal Range 90-180) = 256 A STENT, 4.0 12 INTEGRITY 4.0 12 was deployed using a 30 KARLA INDEFLATOR at 12 atmospheres for 2 0 seconds in 14:15:50 the CIRC Prox. 14:16:14 Delivery device removed 14:16:24 Wire removed 14:16:30 Catheter was removed over wire. 14:17:12 HR=78 bpm, UOIL=953/74 mmhg, SpO2=92.0 %, Resp=21 B/min 14:17:40 Case End 14:20:16 In the Fem Art (right) the SHEATH, FR6.5 PRELUDE 11CM FR 6.[address] by Joseline Gabriel RT(R) (). 14:20:26 Sterile dressing applied to site 14:20:27 No case complications noted. 14:20:28 Cine recording checked. Assessment: Final Case, HR=75 BPM, Rhythm=SR, FAFI=121/74 mmhg, Chest Pain=0 Right Pulses: Morales Ped=2, Femoral=3 14:20:29 Neurological: State=Alert, Ox3 Respiration: Resp=20 B/min, SpO2=92 % 41 mL AGGRASTAT BOLUS given in lab by Vik Silva RN in Left Forearm via Peripheral IV. Orde red by Sam, 14:21:56 Ivan. 14:22:18 HR=73 bpm, YZUY=506/66 mmhg, SpO2=91.0 %, Resp=23 B/min 0.15 mcg/kg/min AGGRASTAT DRIP given in lab by Vik Silva RN in Left Forearm via Peripheral IV. Pump/Drip Flow 14:25:18 = 14.71 ml/hr using NaCl .9 with a concentration of 12.5 mg in 250 ml. Ordered by Con Vargas. 14:27:15 HR=85 bpm, GSVX=802/78 mmhg, SpO2=91.0 %, Resp=20 B/min 14:27:20 600 mg PLAVIX given in lab by Vik Silva RN via Oral. Ordered by Ivan Vargas. 14:32:18 SZUA=057/77 mmhg 14:34:09 Patient moved to stretcher 14:35:16 Patient tranported to DOCU. 14:36:50 Vitals capture stopped. End Study - Contrast Media Used In Study Contrast Total Opened (mL) Total Used (mL) Total Wasted (mL) Omnipaque 70 70 0 End Study - Maximum Contrast Load Max Contrast Load (mL) 453.8 End Study - Radiation Exposure Fluoro Time (minutes) 5.0 End Study - Patient Disposition Complications Transferred To Interventional Outcome No Telemetry Bed successful
[2017-06-06] MEDS ORDERED: CLOPIDOGREL 300 MG TAB PO ONE (15:45)
[2017-06-06] MEDS ORDERED: SODIUM CHLORIDE 0.9% FLUSH 10 ML FLUSH IV FLUSH PRN (15:45)
[2017-06-06] MEDS ORDERED: MISC INFORMATION XX ONE (15:45)
[2017-06-06] MEDS ORDERED: ATORVASTATIN 10 MG TAB PO SCH (21:00)
[2017-06-06] MEDS: CARVEDILOL 3.125 MG TAB PO SCH (21:12)
[2017-06-07] VITALS (21 sets, daily range): BP systolic 134–154; BP diastolic 68–77; PULSE 60–88; RESP 16–18; TEMP 98–98.5; O2SAT 93–99
[2017-06-07] MEDS: SODIUM CHLOR 0.9% 1000 ML INJ 1,000 ML IV SCH (01:10)
[2017-06-07] MEDS: TIROFIBAN INFUSION INJ 250 ML IV SCH ×2 (02:13→08:44)
[2017-06-07] MEDS: RESP: ALBUTEROL 2.5 MG/IPRATROPIUM 0.5 MG NEB (SCH) NEB ×3 (03:18→15:13)
[2017-06-07] MEDS ORDERED: PHARMACY ORDERED LAB ONE (07:45)
[2017-06-07] MEDS: INSULIN ASPART SUPPLEMENTAL SCALE SQ SCH ×2 (08:00→11:29)
[2017-06-07] MEDS: DOCUSATE SODIUM 50 MG/SENNA 8.6 MG TAB PO SCH (09:00)
[2017-06-07] MEDS ORDERED: ASPIRIN 81 MG CHEW TAB PO SCH (09:00)
[2017-06-07] MEDS ORDERED: CLOPIDOGREL 75 MG TAB PO SCH (09:00)
[2017-06-07] MEDS ORDERED: RAMIPRIL 2.5 MG CAP PO SCH (09:00)
[2017-06-07] MEDS: CARVEDILOL 3.125 MG TAB PO SCH (09:05)
[2017-06-07] MEDS: SODIUM CHLORIDE 0.9% FLUSH 10 ML FLUSH IV FLUSH SCH (09:07)
--- NOTE | 2017-06-07 09:26 | PD.ONC.PN ---
Subjective Subjective Remarks Afebrile overnight. Patient resting in bed in nad. No complaints. Wants to go home. Objective Data Date Time Temp Pulse Resp B/P (MAP) Pulse Ox O2 Delivery O2 Flow Rate FiO2 06/07/17 08:19 98.5 70 18 148/77 (100) 96 06/07/17 08:19 96 Room Air 06/07/17 08:17 84 06/07/17 08:01 98.3 70 16 148/77 (100) 96 06/07/17 07:30 70 06/07/17 06:45 71 06/07/17 06:00 60 06/07/17 05:00 74 06/07/17 04:00 71 06/07/17 03:00 73 06/07/17 02:00 74 06/07/17 01:00 68 06/07/17 00:08 98.3 75 16 134/68 (90) 94 06/07/17 00:00 65 06/06/17 23:00 71 06/06/17 22:00 74 06/06/17 21:00 65 06/06/17 20:00 74 06/06/17 20:00 Room Air 06/06/17 20:00 98.3 73 16 133/71 (91) 95 06/06/17 19:00 73 06/06/17 18:06 74 06/06/17 18:02 98.3 78 16 136/76 (96) 97 06/06/17 14:40 94 Room Air 06/06/17 12:02 97.5 73 18 159/77 (104) 97 06/06/17 12:00 72 06/06/17 12:00 Room Air 06/06/17 11:22 97 06/07/17 06/07/17 06/07/17 07:00 15:00 23:00 Intake Total 730 ml 266 ml Output Total 650 ml Balance 80 ml 266 ml Result Diagram: 06/06/17 0812 06/06/17 0812 Laboratory Results Laboratory Tests Test 06/06/17 12:55 Culture Results Microbiology Date/Time Source Procedure Growth Status 06/04/17 17:05 Blood Peripheral Aerobic Blood Culture - Preliminary NO GROWTH IN 2 DAYS Resulted 06/04/17 17:05 Blood Peripheral Anaerobic Blood Culture - Preliminary NO GROWTH IN 2 DAYS Resulted 06/04/17 17:00 Blood Peripheral Aerobic Blood Culture - Preliminary NO GROWTH IN 2 DAYS Resulted 06/04/17 17:00 Blood Peripheral Anaerobic Blood Culture - Preliminary NO GROWTH IN 2 DAYS Resulted Administered Medications Medications (Trade) Dose Ordered Sig/Mariana Route PRN Reason Start Time Stop Time Status Last Admin Dose Admin Senna/Docusate Sodium (Nicole-Colace) 1 tab BID PO 06/04/17 21:00 06/06/17 09:50 Insulin Aspart (NovoLOG SUPPLEMENTAL SCALE) 1 ACHS SLIDING SCALE SQ 06/04/17 21:00 06/07/17 08:00 Albuterol/ Ipratropium (Duoneb Neb) 1 ampule Q6HR NEB NEB 06/05/17 04:00 06/05/17 09:27 Sodium Chloride 1,000 ml @ 84 mls/hr [id number] IV 06/05/17 01:30 06/06/17 04:47 Sodium Chloride (NS Flush) 2 ml BID IV FLUSH 06/06/17 21:00 06/07/17 09:07 Aspirin (Aspirin Chew) 162 mg DAILY PO 06/07/17 09:00 06/07/17 09:05 Clopidogrel Bisulfate (Plavix) 75 mg DAILY PO 06/07/17 09:00 06/07/17 09:05 Tirofiban/Sodium Chloride 250 ml @ 14.706 mls/ hr Q17H IV 06/06/17 15:44 06/07/17 09:43 06/07/17 02:13 Carvedilol (Coreg) 3.125 mg BID PO 06/06/17 21:00 06/07/17 09:05 Ramipril (Altace) 2.5 mg DAILY PO 06/07/17 09:00 06/07/17 09:06 Atorvastatin Calcium (Lipitor) 10 mg HS PO 06/06/17 21:00 06/06/17 21:10 Objective Remarks GENERAL: Pleasant elderly male, sitting up in bed in nad. SKIN: Warm and dry. HEAD: Normocephalic. EYES: No injection or drainage. NECK: Supple, trachea midline. CARDIOVASCULAR: Regular rate and rhythm RESPIRATORY: Breath sounds equal bilaterally. No accessory muscle use. GASTROINTESTINAL: Abdomen soft, non-tender, nondistended. EXTREMITIES: No cyanosis NEUROLOGICAL: awake and alert, normal speech. moving all extremities. Assessment/Plan Problem List: (1) Leukocytosis ICD Codes: D72.829 - Elevated white blood cell count, unspecified Status: Acute Plan: --likely CLL --will need follow up upon discharge--he plans to follow up with the [facility] in [facility]. --liver u/s shows hepatosplenomegaly Assessment 77y/o male with lymphocytosis suspicious for chronic lymphocytic leukemia. h/o Coronary artery disease. Lymphocytosis. Community acquired pneumonia. Non- ST elevated AR. Mild anemia. Diabetes. Hyperlipidemia. Hypertension. Plan 1. monitor CBC 2. once discharged follow up at [facility] Attending Statement As discussed fu at [facility]. Problem Qualifiers (1) Leukocytosis: Qualified Codes: D72.829 - Elevated white blood cell count, unspecified Marilu Charles Jun 07, 2017 09:26 Celine Mckeon MD Jun 07, 2017 18:59
[2017-06-07] MEDS ORDERED: CARV3.125 PO (11:55)
[2017-06-07] MEDS ORDERED: PLAV75TA29 PO (11:55)
[2017-06-07] MEDS ORDERED: ASPI81 PO (11:55)
[2017-06-07] MEDS ORDERED: RAMI2.5C PO (11:55)
[2017-06-07] MEDS ORDERED: LIPI10TA PO (11:55)
--- NOTE | 2017-06-07 12:42 | MA ---
cc: ANUSHKA CELIS M.D. DATE 06/06/2017 PROCEDURE PERFORMED Left heart catheterization, left ventriculography, coronary angiography, direct PCI bare metal stent of the proximal circumflex vessel. INDICATIONS Dense coronary calcification on CT of the chest, non-STEMI, left bundle-branch block, pleural effusions, elevated BNP, decompensated congestive heart failure. PROCEDURAL STATEMENT The patient was brought to the cardiac catheterization laboratory, prepped and draped in the usual sterile fashion. 10 cc's of 1% lidocaine was used to locally anesthetize the right common femoral artery. A 4-Belgian sheath was subsequently placed in the right common femoral artery. A 4-Belgian JR-4 and JL-5 catheters were used to perform left heart coronary angiography, left ventriculography. Also note, a 4-Belgian pigtail catheter was also used for diagnostic purposes. FINDINGS LV pressure is 120/5-7, EF of 65%. Note, the proximal and mid right coronary artery and left main LAD are heavily fibrocalcific fluoroscopically. Right coronary artery is large and dominant, reference vessel diameter of 4-1/2 to 5 mm. There is a proximal 50% stenosis. Mild diffuse disease in the xii-uj-dlpfer segment up to of 20% angiographically. The right PDA has a proximal 60-70% stenosis followed by sequential 75-80% stenosis. The right ANGELITO is slightly ectatic with an ostial 30% stenosis. Reference vessel diameter of 4.0 mm in diameter. The left main coronary has no significant disease angiographically. The circumflex vessel has a proximal 90% stenosis. Gives rise to large first obtuse marginal vessel reference vessel diameter of 4 to 4-1/2 mm which itself has a proximal 30% stenosis. The LAD is transapical, has mild diffuse disease in the proximal segment up to 20% angiographically. The vessel tapers from a 3.54 mm vessel down to approximately a 2.0-mm vessel after the first diagonal artery. There is a focal 95% stenosis after the second diagonal artery. The LAD is transapical. The first diagonal artery a is small to medium size vessel reference vessel diameter at 2 to 2.5 mm in diameter. Ostial stenosis of 20%, mid stenosis of 50%, second diagonal artery small vessel reference vessel diameter 1.5 mm proximal, diffuse disease up to 40% angiographically. DISCUSSION The patient has CLL. I suspect his culprit for his non-STEMI is the mid-LAD, but it could certainly possibly be the left circumflex marginal vessel system. Certainly that would potentially have a large hemodynamic effect given its large reference vessel diameter. I am concerned about increased viscosity, small stent diameter and length terms of stenting the LAD or the PDA. I think it would be high risk for stent thrombosis. I think it is relatively lower risk to stent the circ marginal vessel which is a reference vessel diameter of 4 mm then treat the PDA and LAD medically. Therefore, the 6-Belgian sheath was exchanged for the 4-Belgian sheath. 70 units/kilo of heparin was given. ACT 256, 6-Belgian XB 4.0 guide, 0.014 Prowater guidewire were used to cross the proximal left circ OM lesion. The lesion was directly stented with a 4.0 x 12 Integrity stent. Note, at 9 atmospheres there was significant dog boning of the distal segment of the stent that required 12 atmospheres for full stent deployment. The stenosis went from 90% to 0% with ANGLE-III flow. CONCLUSION 1. Non-STEMI decompensated heart failure and pleural effusions, elevated BNP with recent diagnosis of chronic lymphocytic leukemia and severe three-vessel disease as detailed above. 2. Well-preserved LV systolic function at 65% with normal LV pressures of 120/5-7. 3. Successful direct PCI bare metal stent of the proximal left circ OM from 90% to 0% with ANGLE-III flow. 4. Recommend Plavix 600 mg p.o. load and then 75 a day for 12/15 months, aspirin 162 mg daily, Aggrastat drip. 5. Recommend medical management of the LAD and PDA lesions. 6. Note, could also consider bypass or high-risk intervention if the patient develops decompensated congestive heart failure refractory to optimal medical management. 7. We will also treat lipids per NCCN guidelines. MD SYDNEE Gama/MELITON /2:22 PM /12:15 PM
--- NOTE | 2017-06-07 14:52 | PD.CARD.PN ---
Subjective Subjective Remarks assymptomatic, states he feels much better Objective Medications Current Medications Medications (Trade) Dose Ordered Sig/Mariana Route Start Time Stop Time Status Last Admin (Narcan Inj) 0.4 mg UNSCH PRN IV PUSH 06/04/17 19:15 (Nicole-Colace) 1 tab BID PO 06/04/17 21:00 06/06/17 09:50 (Milk Of Magnesia Liq) 30 ml Q12H PRN PO 06/04/17 19:15 (Senokot) 17.2 mg Q12H PRN PO 06/04/17 19:15 (Dulcolax Supp) 10 mg DAILY PRN RECTAL 06/04/17 19:15 (Lactulose Liq) 30 ml DAILY PRN PO 06/04/17 19:15 (D50w (Vial) Inj) 50 ml UNSCH PRN IV PUSH 06/04/17 19:15 (Glucagon Inj) 1 mg UNSCH PRN OTHER 06/04/17 19:15 (NovoLOG SUPPLEMENTAL SCALE) 1 ACHS SLIDING SCALE SQ 06/04/17 21:00 06/07/17 08:00 (Duoneb Neb) 1 ampule Q2HR NEB PRN NEB 06/05/17 01:00 (Duoneb Neb) 1 ampule Q6HR NEB NEB 06/05/17 04:00 06/05/17 09:27 Sodium Chloride 1,000 ml @ 84 mls/hr [id number] IV 06/05/17 01:30 06/06/17 04:47 (NS Flush) 2 ml UNSCH PRN IV FLUSH 06/06/17 15:45 (NS Flush) 2 ml BID IV FLUSH 06/06/17 21:00 06/07/17 09:07 (Aspirin Chew) 162 mg DAILY PO 06/07/17 09:00 06/07/17 09:05 (Plavix) 75 mg DAILY PO 06/07/17 09:00 06/07/17 09:05 (Coreg) 3.125 mg BID PO 06/06/17 21:00 06/07/17 09:05 (Altace) 2.5 mg DAILY PO 06/07/17 09:00 06/07/17 09:06 (Lipitor) 10 mg HS PO 06/06/17 21:00 06/06/17 21:10 Vital Signs / I&O Vital Signs Date Time Temp Pulse Resp B/P (MAP) Pulse Ox O2 Delivery O2 Flow Rate FiO2 06/07/17 12:02 72 06/07/17 11:45 73 16 141/77 (98) 99 06/07/17 11:45 73 06/07/17 11:24 98.0 73 18 135/75 (95) 98 06/07/17 10:52 96 06/07/17 10:01 82 06/07/17 09:51 88 06/07/17 08:19 98.5 70 18 148/77 (100) 96 06/07/17 08:19 96 Room Air 06/07/17 08:17 84 06/07/17 08:01 98.3 70 16 148/77 (100) 96 06/07/17 07:30 70 06/07/17 06:45 71 06/07/17 06:00 60 06/07/17 05:00 74 06/07/17 04:00 71 06/07/17 03:00 73 06/07/17 02:00 74 06/07/17 01:00 68 06/07/17 00:08 98.3 75 16 134/68 (90) 94 06/07/17 00:00 65 06/06/17 23:00 71 06/06/17 22:00 74 06/06/17 21:00 65 06/06/17 20:00 74 06/06/17 20:00 Room Air 06/06/17 20:00 98.3 73 16 133/71 (91) 95 06/06/17 19:00 73 06/06/17 18:06 74 06/06/17 18:02 98.3 78 16 136/76 (96) 97 I/O 06/06/17 06/06/17 06/06/17 06/07/17 06/07/17 06/07/17 07:00 15:00 23:00 07:00 15:00 23:00 Intake Total 1000 ml 730 ml 266 ml Output Total 750 ml 650 ml 200 ml Balance 250 ml 80 ml 66 ml Intake Oral 0 ml 480 ml IV Total 1000 ml 250 ml 266 ml Output Urine Total 750 ml 650 ml 200 ml # Voids 1 # Bowel Movements 0 1 Laboratory GENERAL: SKIN: Warm and dry. HEAD: Normocephalic. EYES: No scleral icterus. No injection or drainage. NECK: Supple, trachea midline. No JVD or lymphadenopathy. CARDIOVASCULAR: Regular rate and rhythm without murmurs, gallops, or rubs. RESPIRATORY: Breath sounds equal bilaterally. No accessory muscle use. GASTROINTESTINAL: Abdomen soft, non-tender, nondistended. MUSCULOSKELETAL: No cyanosis, or edema. BACK: Nontender without obvious deformity. No CVA tenderness. Assessment and Plan Problem List: (1) CAD (coronary artery disease) ICD Codes: I25.10 - Atherosclerotic heart disease of [place] coronary artery without angina pectoris (2) LBBB (left bundle branch block) ICD Codes: I44.7 - Left bundle-branch block, unspecified (3) NSTEMI (non-ST elevated myocardial infarction) ICD Codes: I21.4 - Non-ST elevation (NSTEMI) myocardial infarction Assessment and Plan 1.) CAD - pod#1 bms prox lcx, clinically much imprioved (less fatigue and mailaise), ok to dc from cv standpoint on aspirin ,plavix, lipitor, coreg and altace; [facility] Ivan Vargas MD Jun 07, 2017 14:52
--- NOTE | 2017-06-07 20:03 | EKG ---
Date Performed: 06/06/2017 Time Performed: 20:13:44 PTAGE: 77 years EKG: Sinus rhythm Left axis deviation Left bundle branch block Abnormal ECG PREVIOUS TRACING 06/04/2017 @ 22.54.12 WHEN COMPARED TO PRIOR TRACING THE PATIENT NOW HAS LBBB. DOCTOR: Radha Bill Interpretating Date/Time 06/07/2017 20:01:49
--- NOTE | 2017-06-07 21:56 | HHI.PR ---
Objective Vitals Vital Signs Date Time Temp Pulse Resp B/P (MAP) Pulse Ox O2 Delivery O2 Flow Rate FiO2 06/07/17 15:14 99 21 06/07/17 12:02 72 06/07/17 11:45 73 16 141/77 (98) 99 06/07/17 11:45 73 06/07/17 11:24 98.0 73 18 135/75 (95) 98 06/07/17 10:52 96 06/07/17 10:01 82 06/07/17 09:51 88 06/07/17 08:19 98.5 70 18 148/77 (100) 96 06/07/17 08:19 96 Room Air 06/07/17 08:17 84 06/07/17 08:01 98.3 70 16 148/77 (100) 96 06/07/17 07:30 70 06/07/17 06:45 71 06/07/17 06:00 60 06/07/17 05:00 74 06/07/17 04:00 71 06/07/17 03:00 73 06/07/17 02:00 74 06/07/17 01:00 68 06/07/17 00:08 98.3 75 16 134/68 (90) 94 06/07/17 00:00 65 06/06/17 23:00 71 06/06/17 22:00 74 I/O 06/06/17 06/06/17 06/06/17 06/07/17 06/07/17 06/07/17 07:00 15:00 23:00 07:00 15:00 23:00 Intake Total 1000 ml 730 ml 266 ml 480 ml Output Total 750 ml 650 ml 200 ml 450 ml Balance 250 ml 80 ml 66 ml 30 ml Intake Oral 0 ml 480 ml 480 ml IV Total 1000 ml 250 ml 266 ml Output Urine Total 750 ml 650 ml 200 ml 450 ml # Voids 1 # Bowel Movements 0 1 0 Result Diagram: 06/06/1712 06/06/1712 A/P Problem List: (1) Pneumonia ICD Code: J18.9 - Pneumonia, unspecified organism (2) Leukocytosis ICD Code: D72.829 - Elevated white blood cell count, unspecified Status: Acute (3) NSTEMI (non-ST elevated myocardial infarction) ICD Code: I21.4 - Non-ST elevation (NSTEMI) myocardial infarction Problem Qualifiers (1) Pneumonia: Qualified Codes: J18.1 - Lobar pneumonia, unspecified organism (2) Leukocytosis: Qualified Codes: D72.829 - Elevated white blood cell count, unspecified Jake Staton MD Jun 07, 2017 21:56
[2017-06-07 22:43] LABS: ALB/GLOB RATIO (SPE) 1.22 (1.39-2.23)
== END 2017-06-07 16:51 | disposition home or self-care (01) | DRG 248 ==
LOC: PHED 14:50 → PHEDA 18:34 → INTOOBSV 18:34 → N04A 21:41 → HCIS 06-06 14:18 → OBSVTOIN 06-06 15:46 → HCIS 06-06 17:41
PROVIDERS: ADMIT Hospitalist; ATTEND Hospitalist
PROC: 4A023N7 Measurement of Cardiac Sampling and Pressure, Left Heart, Percutaneous Approach (ICD-10-PCS; 2017-06-06)
PROC: B2111ZZ Fluoroscopy of Multiple Coronary Arteries using Low Osmolar Contrast (ICD-10-PCS; 2017-06-06)
PROC: B2151ZZ Fluoroscopy of Left Heart using Low Osmolar Contrast (ICD-10-PCS; 2017-06-06)
PROC: 02703DZ Dilation of Coronary Artery, One Artery with Intraluminal Device, Percutaneous Approach (ICD-10-PCS; principal; 2017-06-06 13:30)
DX: I21.4 Non-ST elevation (NSTEMI) myocardial infarction (principal); J18.1 Lobar pneumonia, unspecified organism; C91.10 Chronic lymphocytic leukemia of B-cell type not having achieved remission; I11.0 Hypertensive heart disease with heart failure; I25.10 Atherosclerotic heart disease of native coronary artery without angina pectoris; I50.9 Heart failure, unspecified; E11.65 Type 2 diabetes mellitus with hyperglycemia; E87.1 Hypo-osmolality and hyponatremia; I44.7 Left bundle-branch block, unspecified; E78.5 Hyperlipidemia, unspecified; H91.93 Unspecified hearing loss, bilateral; Z87.891 Personal history of nicotine dependence; Z79.84 Long term (current) use of oral hypoglycemic drugs; M19.90 Unspecified osteoarthritis, unspecified site; E87.6 Hypokalemia; E88.09 Other disorders of plasma-protein metabolism, not elsewhere classified
CPT/HCPCS: 71046; 76705; 80048; 80053; 82550; 82784; 82948; 83605; 83615; 83880; 84165; 84484; 85002; 85007; 85027; 85044; 85347; 85610; 87040; 88184; 88185; 92928; 93005; 93458; 94640; 94664; 96361; 96365; 96366; 96367; 96372; 96375; 99152; 99153; C1769; C1876; C1887; C1893; C9113; G0378; J1644; J1815; J1956; J2250; J2543; J3246; J3370; J7030; J7050; Q9967